=== PATIENT | male | born 1960 | race American Indian/Alaskan Native ===

== ENCOUNTER 2017-11-12 20:32 | Observation (INO) | payer MEDICAID, OTHER ==
--- NOTE | 2017-11-12 23:49 | ED PDOC ---
HPI: Headache Time Seen by Provider: 11/12/17 23:15 Chief Complaint (Nursing): High Blood Pressure Chief Complaint (Provider): headache History Per: Patient History/Exam Limitations: no limitations Onset/Duration Of Symptoms: Days (x3) Current Symptoms Are (Timing): Still Present Additional Complaint(s): 57 year old male with pmHx of HTN, arrives to ED with a complaint of constant, diffuse, pressure-like headache ongoing for 3 days. Patient also reports associated bilateral leg swelling and shortness of breath on exertion. He denies any chest pain, focal weakness, blurry vision, difficulty with gait or speech. Patient admits that he has been non-compliant with HTN meds for over a week and has not seen his PMD in over a year. PMD: Dr. Murray Boss Past Medical History Reviewed: Historical Data, Nursing Documentation, Vital Signs Vital Signs: Last Vital Signs Temp 98.2 F 11/12/17 23:33 Pulse 83 11/12/17 23:33 Resp 18 11/12/17 23:33 BP 187/126 H 11/12/17 23:33 Pulse Ox 99 11/12/17 23:33 - Medical History PMH: Bipolar Disorder, HTN, Malignancy (testicular cancer), Schizophrenia Denies: Chronic Kidney Disease - Surgical History Surgical History: Appendectomy Other surgeries: right orchiectomy - Family History Family History: States: Unknown Family Hx - Social History Current smoker - smoking cessation education provided: Yes Alcohol: Occasional (3 times/weekly) Drugs: Denies - Immunization History Hx Tetanus Toxoid Vaccination: No Hx Influenza Vaccination: Yes Hx Pneumococcal Vaccination: No - Home Medications Home Medications: Ambulatory Orders Medication Instructions Recorded Benztropine [Cogentin] 1 mg PO DAILY 11/13/17 Colchicine [Mitigare] 0.6 mg PO BID 11/13/17 Risperidone [Risperdal] 3 mg PO DAILY 11/13/17 Carvedilol [Coreg] 6.25 mg PO Q12 #30 tab 11/15/17 Furosemide [Lasix] 20 mg PO DAILY #30 tablet 11/15/17 Lisinopril [Zestril] 20 mg PO DAILY #30 tab 11/15/17 Pantoprazole [Protonix EC Tab] 40 mg PO DAILY #30 ect 11/15/17 - Allergies Allergies/Adverse Reactions: Allergies Allergy/AdvReac Type Severity Reaction Status Date / Time shellfish derived Allergy Intermediate Verified 04/24/16 07:25 Review of Systems ROS Statement: Except As Marked, All Systems Reviewed And Found Negative Eyes: Negative for: Vision Change (blurry) Cardiovascular: Negative for: Chest Pain Respiratory: Positive for: SOB with Exertion Musculoskeletal: Positive for: Other (bilateral leg swelling) Neurological: Positive for: Headache (pressure-like, diffuse). Negative for: Weakness (focal), Incoordination (difficulty with gait), Change in Speech Physical Exam - Reviewed Nursing Documentation Reviewed: Yes Vital Signs Reviewed: Yes - Physical Exam Appears: Positive for: Well, No Acute Distress Head Exam: Positive for: ATRAUMATIC, NORMOCEPHALIC Skin: Positive for: Warm, Dry Eye Exam: Positive for: EOMI, PERRL ENT: Negative for: Pharyngeal Erythema, Tonsillar Exudate Neck: Positive for: Painless ROM, Supple Cardiovascular/Chest: Positive for: Regular Rate, Rhythm. Negative for: Murmur Respiratory: Positive for: Decreased Breath Sounds (at bases), Other (clear to auscultation). Negative for: Rales, Rhonchi, Wheezing Gastrointestinal/Abdominal: Positive for: Soft. Negative for: Tenderness Back: Positive for: Normal Inspection. Negative for: Decreased ROM Extremity: Positive for: Pedal Edema (1+ pitting bilaterally ) Lymphatic: Negative for: Adenopathy Neurologic/Psych: Positive for: Alert, Oriented. Negative for: Motor/Sensory Deficits - Laboratory Results Result Diagrams: 11/14/17 04:25 11/15/17 05:05 - ECG O2 Sat by Pulse Oximetry: 99 (RA) Pulse Ox Interpretation: Normal Medical Decision Making Medical Decision Making: Initial Impression: Hypertension Differential includes but not limited to: CHF, renal insufficency, hypertensive encephalopathy, fluid overload Initial Plan: * Type and screen * CT head without contrast * EKG * BNP * CMP * Magnesium * Phospourous * Troponin I * Urine dipstick * CBC * PTT * PT * CXR Scribe Attestation: Documented by Leyla Weston, acting as a scribe for Evette Lee MD. Provider Scribe Attestation: All medical record entries made by the Scribe were at my direction and personally dictated by me. I have reviewed the chart and agree that the record accurately reflects my personal performance of the history, physical exam, medical decision making, and the department course for this patient. I have also personally directed, reviewed, and agree with the discharge instructions and disposition. Disposition - Clinical Impression Clinical Impression: Fluid overload, Hypertension - Disposition Disposition: Transfer of Care Disposition Time: 00:00 Condition: STABLE Patient Signed Over To: Markie Caldera Handoff Comments: pending ED work-up and final disposition
[2017-11-12] MEDS ORDERED: Nitroglycerin 2% Ointment Foilpak UD TOP STA (23:51)
[2017-11-13] MEDS ORDERED: Nitroglycerin 2% Ointment Foilpak UD TOP ONE (00:19)
[2017-11-13 00:23] LABS: BASO % 0.1 % (0.0-2.0); EOS # 0.3 K/uL (0.0-0.7); EOS % 3.1 % (0.0-4.0); HEMOGLOBIN 14.6 g/dL (12.0-18.0); LYMPH # 2.5 K/uL (1.0-4.3); MEAN CELL VOLUME 92.9 fl (80.0-94.0); MEAN CORPUSCULAR HEMOGLOBIN 31.2 pg (27.0-31.0); MEAN CORPUSCULAR HGB CONC 33.6 g/dL (33.0-37.0); MEAN PLATELET VOLUME 10.2 fl (7.2-11.7); MONO # 0.8 K/uL (0.0-0.8); MONO % 8.4 % (0.0-10.0); NEUT # 5.5 K/uL (1.8-7.0); NEUT % 60.4 % (50.0-75.0); NRBC % 0.1 % (0.0-0.0); RBC 4.66 Mil/uL (4.40-5.90); RED CELL DISTRIBUTION WIDTH 14.1 % (11.5-14.5)
[2017-11-13 00:27] LABS: CALCIUM 8.5 mg/dL (8.4-10.2); GFR AFRICAN-AMERICAN > 60; GFR NON-AFRICAN AMERICAN 57
[2017-11-13 00:28] LABS: PROTHROMBIN TIME 11.3 Seconds (9.8-13.1)
[2017-11-13 00:30] LABS: PARTIAL THROMBOPLASTIN TIME 30.9 Seconds (25.6-37.1)
--- NOTE | 2017-11-13 00:32 | ED PDOC ---
- Laboratory Results Result Diagrams: 11/13/17 00:08 11/13/17 00:08 - ECG O2 Sat by Pulse Oximetry: 99 (RA) Medical Decision Making Medical Decision Making: Time: 00:00 --Patient is endorsed to provider by Dr. Lee, pending ED work-up and final disposition. Time: 00:10 --CT head FINDINGS: Brain: No intracranial hemorrhage. No significant white matter disease. No evidence of evolved territorial infarct. No mass effect or midline shift. Ventricles: Unremarkable. No ventriculomegaly. Bones/joints: No acute osseous abnormality. Soft tissues: No soft tissue swelling. Sinuses: Visualized paranasal sinuses are clear. Mastoid air cells: Mastoid air cells are well-aerated. IMPRESSION: No acute findings. 300 Patient has diuresed significantly, approximately 3.5L. [address] Poole who agrees to admission for diuresis and cardiac monitoring. Scribe Attestation: Documented by Leyla Weston, acting as a scribe for Markie Caldera MD. Provider Scribe Attestation: All medical record entries made by the Scribe were at my direction and personally dictated by me. I have reviewed the chart and agree that the record accurately reflects my personal performance of the history, physical exam, medical decision making, and the department course for this patient. I have also personally directed, reviewed, and agree with the discharge instructions and disposition. Disposition - Clinical Impression Clinical Impression: Fluid overload, Hypertension - POA Present On Arrival: None - Disposition Disposition: Hospitalized as Observation Patient Disposition Time: 06:30 Condition: STABLE
[2017-11-13 00:39] LABS: B-TYPE NATRIURETIC PEPTIDE 1440 pg/ml (0-900)
[2017-11-13 00:42] LABS: ALBUMIN 3.6 g/dL (3.5-5.0); ALT/SGPT 46 U/L (21-72); AST/SGOT 47 U/L (17-59); BARBITURATES, UR NEGATIVE (NEGATIVE); BENZODIAZEPINES, UR NEGATIVE (NEGATIVE); BLOOD UREA NITROGEN 21 mg/dl (9-20); OPIATES, UR NEGATIVE (NEGATIVE); PHENCYCLIDINE, UR NEGATIVE (NEGATIVE)
--- NOTE | 2017-11-13 07:13 | CARD ---
APPROVED REPORT Date of service: 11/13/2017 <Conclusion> Normal sinus rhythm Possible Left atrial enlargement ST & T wave abnormality, consider inferolateral ischemia Prolonged QT Abnormal ECG
--- NOTE | 2017-11-13 08:27 | RAD ---
Date of service: 11/12/2017 HISTORY: hypertension edema COMPARISON: 01/17/2015 TECHNIQUE: Chest PA and lateral FINDINGS: LUNGS: No consolidation. Interval increased pulmonary venous congestion PLEURA: No pleural effusion or pneumothorax appreciated CARDIOVASCULAR: Cardiomegaly -similar. Interval increased pulmonary venous congestion OSSEOUS STRUCTURES: Spondylosis VISUALIZED UPPER ABDOMEN: Normal. OTHER FINDINGS: None. IMPRESSION: Cardiomegaly with interval increased pulmonary venous congestion-compatible with interval mild CHF
--- NOTE | 2017-11-13 08:45 | CT ---
Date of service: 11/12/2017 PROCEDURE: CT HEAD WITHOUT CONTRAST. HISTORY: DIZZINESS HEADACHE COMPARISON: 03/07/2015 TECHNIQUE: Axial computed tomography images were obtained through the head/brain without intravenous contrast. Radiation dose: Total exam DLP = 1239 mGy-cm. This CT exam was performed using one or more of the following dose reduction techniques: Automated exposure control, adjustment of the mA and/or kV according to patient size, and/or use of iterative reconstruction technique. FINDINGS: HEMORRHAGE: No intracranial hemorrhage. BRAIN: No mass effect or edema. No atrophy or chronic microvascular ischemic changes. VENTRICLES: Unremarkable. No hydrocephalus. CALVARIUM: Unremarkable. PARANASAL SINUSES: Unremarkable as visualized. No significant inflammatory changes. MASTOID AIR CELLS: Unremarkable as visualized. No inflammatory changes. OTHER FINDINGS: None. IMPRESSION: Normal CT of the Head. No interval pathology noted. Concordant results (preliminary interpretation) provided by [facility].
[2017-11-13] MEDS ORDERED: Magnesium Sulfate 2 gm/50 ml 2 GM/50 ML BAG IVPB ONE (11:20)
[2017-11-13] MEDS ORDERED: Magnesium Sulfate 2 gm/50 ml 2 GM/50 ML BAG ONE (11:30)
[2017-11-13] MEDS ORDERED: Pneumococcal 23-Valent Vaccine IM ONE (15:20)
--- NOTE | 2017-11-13 23:50 | CP.PCM.HP ---
History of Present Illness - History of Present Illness History of Present Illness: CC: MARTINEZ, SOB and Leg Swelling History of Present Illness: A 57 year old male with PMHx of HTN, arrives to ED with a complaint of constant , diffuse, pressure-like headache ongoing for 3 days. Patient also reports associated bilateral leg swelling and shortness of breath on exertion. He denies any chest pain, focal weakness, blurry vision, difficulty with gait or speech. Patient admits that he has been non-compliant with HTN meds for over a week and has not seen his PMD in over a year. Patient's BP was found to be SBP> 200, and admitted for Hypertensive Emergency with Acute Pulmonary Edema due to Most likely New onset CHF. Present on Admission - Present on Admission Any Indicators Present on Admission: Yes History of DVT/PE: No History of Uncontrolled Diabetes: No Urinary Catheter: No Decubitus Ulcer Present: No Review of Systems - Review of Systems All systems: reviewed and no additional remarkable complaints except Review of Systems: as per HPI Past Patient History - Infectious Disease Hx of Infectious Diseases: None - Past Medical History & Family History Past Medical History?: Yes Past Family History: Reviewed and not pertinent - Past Social History Smoking Status: Never Smoked Alcohol: Social Drugs: Cocaine - CARDIAC Hx Cardiac Disorders: Yes Hx Hypertension: Yes - PULMONARY Hx Respiratory Disorders: No - NEUROLOGICAL Hx Neurological Disorder: No - HEENT Hx HEENT Problems: No - RENAL Hx Chronic Kidney Disease: No - ENDOCRINE/METABOLIC Hx Endocrine Disorders: No - HEMATOLOGICAL/ONCOLOGICAL Hx Blood Disorders: Yes Hx AIDS: No Hx Cancer: Yes (testicular cancer) Hx Human Immunodeficiency Virus (HIV): No - INTEGUMENTARY Hx Dermatological Problems: No - MUSCULOSKELETAL/RHEUMATOLOGICAL Hx Musculoskeletal Disorders: Yes Hx Falls: No Hx Gout: Yes - GASTROINTESTINAL Hx Gastrointestinal Disorders: No - GENITOURINARY/GYNECOLOGICAL Hx Genitourinary Disorders: No - PSYCHIATRIC Hx Psychophysiologic Disorder: Yes Hx Anxiety: Yes Hx Bipolar Disorder: Yes Hx Schizophrenia: Yes Hx Substance Use: Yes - SURGICAL HISTORY Hx Surgeries: Yes Hx Appendectomy: Yes - ANESTHESIA Hx Anesthesia: Yes Hx Anesthesia Reactions: No Hx Malignant Hyperthermia: No Has any member of the family had a problem w/ anesthesia?: No Meds Allergies/Adverse Reactions: Allergies Allergy/AdvReac Type Severity Reaction Status Date / Time shellfish derived Allergy Intermediate Verified 04/24/16 07:25 Physical Exam - Constitutional Appears: Well, No Acute Distress - Head Exam Head Exam: ATRAUMATIC, NORMAL INSPECTION, NORMOCEPHALIC - Eye Exam Eye Exam: EOMI, Normal appearance, PERRL Pupil Exam: NORMAL ACCOMODATION, PERRL - ENT Exam ENT Exam: Mucous Membranes Moist, Normal Exam - Neck Exam Neck exam: Positive for: Normal Inspection - Respiratory Exam Respiratory Exam: Clear to Auscultation Bilateral, NORMAL BREATHING PATTERN - Cardiovascular Exam Cardiovascular Exam: REGULAR RHYTHM, +S1, +S2 - GI/Abdominal Exam GI & Abdominal Exam: Normal Bowel Sounds, Soft. absent: Tenderness - Extremities Exam Extremities exam: Positive for: full ROM, normal capillary refill, normal inspection, pedal edema (+++Pitting Edema) - Back Exam Back exam: FULL ROM, NORMAL INSPECTION - Neurological Exam Neurological exam: Alert, CN II-XII Intact, Normal Gait, Oriented x3, Reflexes Normal - Psychiatric Exam Psychiatric exam: Normal Affect, Normal Mood - Skin Skin Exam: Dry, Intact, Normal Color, Warm Results - Vital Signs Recent Vital Signs: Last Vital Signs Temp 98.1 F 11/13/17 20:26 Pulse 61 11/13/17 20:26 Resp 20 11/13/17 20:26 BP 174/84 H 11/13/17 20:26 Pulse Ox 97 11/13/17 20:26 - Labs Result Diagrams: 11/13/17 00:08 11/13/17 00:08 Labs: Laboratory Results - last 24 hr 11/13/17 11/13/17 11/13/17 00:08 00:08 00:08 WBC 9.0 RBC 4.66 Hgb 14.6 Hct 43.3 MCV 92.9 MCH 31.2 H MCHC 33.6 RDW 14.1 Plt Count 216 MPV 10.2 Neut % (Auto) 60.4 Lymph % (Auto) 28.0 Anderson % (Auto) 8.4 Eos % (Auto) 3.1 Baso % (Auto) 0.1 Neut # (Auto) 5.5 Lymph # (Auto) 2.5 Anderson # (Auto) 0.8 Eos # (Auto) 0.3 Baso # (Auto) 0.0 PT INR APTT Sodium 139 Potassium 5.0 Chloride 109 H Carbon Dioxide 25 Anion Gap 10 BUN 21 H Creatinine 1.3 Est GFR ( Amer) > 60 Est GFR (Non-Af Amer) 57 Random Glucose 83 Calcium 8.5 Phosphorus 3.4 Magnesium 1.3 L Total Bilirubin 1.1 AST 47 ALT 46 Alkaline Phosphatase 72 Troponin I 0.0360 NT-Pro-B Natriuret Pep 1440 H Total Protein 7.2 Albumin 3.6 Globulin 3.6 Albumin/Globulin Ratio 1.0 Urine Opiates Screen Negative Urine Methadone Screen Negative Ur Barbiturates Screen Negative Ur Phencyclidine Scrn Negative Ur Amphetamines Screen Negative U Benzodiazepines Scrn Negative U Oth Cocaine Metabols Positive H U Cannabinoids Screen Negative Blood Type Blood Type Confirm Antibody Screen BBK History Checked 11/13/17 11/13/17 11/13/17 00:08 00:08 00:30 WBC RBC Hgb Hct MCV MCH MCHC RDW Plt Count MPV Neut % (Auto) Lymph % (Auto) Anderson % (Auto) Eos % (Auto) Baso % (Auto) Neut # (Auto) Lymph # (Auto) Anderson # (Auto) Eos # (Auto) Baso # (Auto) PT 11.3 INR 1.0 APTT 30.9 Sodium Potassium Chloride Carbon Dioxide Anion Gap BUN Creatinine Est GFR ( Amer) Est GFR (Non-Af Amer) Random Glucose Calcium Phosphorus Magnesium Total Bilirubin AST ALT Alkaline Phosphatase Troponin I NT-Pro-B Natriuret Pep Total Protein Albumin Globulin Albumin/Globulin Ratio Urine Opiates Screen Urine Methadone Screen Ur Barbiturates Screen Ur Phencyclidine Scrn Ur Amphetamines Screen U Benzodiazepines Scrn U Oth Cocaine Metabols U Cannabinoids Screen Blood Type A POSITIVE Blood Type Confirm A POSITIVE Antibody Screen Negative BBK History Checked No verified bt 11/13/17 12:55 WBC RBC Hgb Hct MCV MCH MCHC RDW Plt Count MPV Neut % (Auto) Lymph % (Auto) Anderson % (Auto) Eos % (Auto) Baso % (Auto) Neut # (Auto) Lymph # (Auto) Anderson # (Auto) Eos # (Auto) Baso # (Auto) PT INR APTT Sodium Potassium Chloride Carbon Dioxide Anion Gap BUN Creatinine Est GFR ( Amer) Est GFR (Non-Af Amer) Random Glucose Calcium Phosphorus Magnesium Total Bilirubin AST ALT Alkaline Phosphatase Troponin I 0.0250 NT-Pro-B Natriuret Pep Total Protein Albumin Globulin Albumin/Globulin Ratio Urine Opiates Screen Urine Methadone Screen Ur Barbiturates Screen Ur Phencyclidine Scrn Ur Amphetamines Screen U Benzodiazepines Scrn U Oth Cocaine Metabols U Cannabinoids Screen Blood Type Blood Type Confirm Antibody Screen BBK History Checked - EKG Data EKG Interpreted by: Myself EKG shows normal: Sinus rhythm Rate: Normal - EKG Data EKG comments: ST&T Changes. Prolonged QT - Imaging and Cardiology Chest x-ray Status: Report reviewed by me Additional comment: IMPRESSION: Cardiomegaly with interval increased pulmonary venous congestion-compatible with interval mild CHF Assessment & Plan (1) Hypertensive emergency Assessment and Plan: Cocaine Use O2 Via NC Clonidine 0.2mg BID Lasix 40mg BID Serial Trop and EKG TTE Status: Acute Priority: High (2) Counseling on substance use and abuse Assessment and Plan: Cocaine Metabolites Status: Acute
[2017-11-14 06:13] LABS: BASO # 0.1 K/uL (0.0-0.2); BASO % 0.6 % (0.0-2.0); EOS # 0.3 K/uL (0.0-0.7); EOS % 3.7 % (0.0-4.0); HEMOGLOBIN 15.4 g/dL (12.0-18.0); LYMPH # 2.4 K/uL (1.0-4.3); LYMPH % 26.6 % (20.0-40.0); MEAN CELL VOLUME 91.4 fl (80.0-94.0); MEAN CORPUSCULAR HEMOGLOBIN 31.5 pg (27.0-31.0); MEAN CORPUSCULAR HGB CONC 34.4 g/dL (33.0-37.0); MEAN PLATELET VOLUME 9.7 fl (7.2-11.7); MONO # 0.8 K/uL (0.0-0.8); NEUT # 5.4 K/uL (1.8-7.0); NEUT % 60.1 % (50.0-75.0); NRBC % 0.3 % (0.0-0.0); RBC 4.91 Mil/uL (4.40-5.90); RED CELL DISTRIBUTION WIDTH 13.7 % (11.5-14.5); WHITE BLOOD COUNT 9.1 K/uL (4.8-10.8)
[2017-11-14 06:27] LABS: TROPONIN I 0.025 ng/mL (0.00-0.120)
[2017-11-14 06:51] LABS: ALB/GLOB RATIO 1.1 (1.0-2.1); ALBUMIN 3.5 g/dL (3.5-5.0); CALCIUM 9.3 mg/dL (8.4-10.2)
[2017-11-14] MEDS: Pantoprazole 40 mg EC Tab PO SCH (08:07)
[2017-11-14] MEDS ORDERED: Magnesium Sulfate 2 gm/50 ml 2 GM/50 ML BAG IVPB ONE (09:00)
[2017-11-14 09:42] LABS: HDL CHOLESTEROL 29 MG/DL (30-70)
[2017-11-14 09:52] LABS: LDL CHOLESTEROL 111 mg/dL (0-129)
--- NOTE | 2017-11-14 14:31 | CARD ---
APPROVED REPORT Date of service: 11/14/2017 EXAM: Two-dimensional and M-mode echocardiogram with Doppler and color Doppler. Other Information Quality : GoodRhythm : NSR INDICATION Congestive Heart Failure 2D DIMENSIONS IVSd2.19 (0.7-1.1cm)LVDd4.85 (3.9-5.9cm) LVOT Diameter2.29 (1.8-2.4cm)PWd1.62 (0.7-1.1cm) IVSs2.51 (0.8-1.2cm)LVDs3.31 (2.5-4.0cm) FS (%) 31.7 %PWs2.28 (0.8-1.2cm) M-Mode DIMENSIONS Left Atrium (MM)3.88 (2.5-4.0cm)IVSd1.80 (0.7-1.1cm) Aortic Root3.47 (2.2-3.7cm)LVDd5.10 (4.0-5.6cm) Aortic Cusp Exc.2.15 (1.5-2.0cm)PWd1.82 (0.7-1.1cm) IVSs2.38 cmFS (%) 38 % LVDs3.09 (2.0-3.8cm)PWs2.44 cm Aortic Valve AoV Peak Tfidcbyp189.5cm/sAoV VTI21.5cmAO Peak GR.5mmHg LVOT Peak Itjronyu01.6cm/sLVOT VTI14.57cmAO Mean GR.4mmHg MARY JO (VMAX)1.77pt9ZRS (VTI)1.29cm2 Mitral Valve MV E Lvqswqvi93.8cm/sMV DECEL MWQO292hkXS A Hyagqsvt45.3cm/s MV MCH76efA/A ratio1.5MVA (PHT)3.42cm2 TDI Lateral E' Peak V3.10cm/sMedial E' Peak V4.24cm/sE/Lateral E'20.6 E/Medial E'15.0 Pulmonary Valve PV Peak Nlzjdvdm76.6cm/s LEFT VENTRICLE The left ventricle is normal size. There is moderate concentric left ventricular hypertrophy. The left ventricular ejection fraction is within the normal range. The Ejection Fraction is 65%. No regional wall motion abnormalities noted.. Transmitral Doppler flow pattern is Grade II-pseudonormal filling dynamics. No left ventricle thrombus noted on this study. There is no ventricular septal defect visualized. There is no mass noted in the left ventricle. RIGHT VENTRICLE The right ventricle is normal size. There is normal right ventricular wall thickness. The right ventricular systolic function is normal. ATRIA The left atrium size is normal. The right atrium size is normal. The interatrial septum is intact with no evidence for an atrial septal defect. AORTIC VALVE The aortic valve is normal in structure. No aortic regurgitation is present. There is no aortic valvular stenosis. MITRAL VALVE The mitral valve is normal in structure. There is no mitral valve stenosis. There is trivial to mild mitral valve regurgitation noted. TRICUSPID VALVE The tricuspid valve is normal in structure. There is no tricuspid valve regurgitation noted. PULMONIC VALVE The pulmonary valve is normal in structure. There is no pulmonic valvular regurgitation. GREAT VESSELS The aortic root is normal in size. The ascending aorta is normal in size. The pulmonary artery is normal. The IVC is normal in size and collapses >50% with inspiration. PERICARDIAL EFFUSION There is no pericardial effusion. <Conclusion> Trivial to mild mitral insufficiency Moderate LVH Normal LV systolic function with doppler hemodynamics consistent with abnormal relaxation Estimated EF 65%
[2017-11-15 06:06] LABS: ALB/GLOB RATIO 1.1 (1.0-2.1); CALCIUM 9.6 mg/dL (8.4-10.2)
--- NOTE | 2017-11-15 08:06 | CP.PCM.PN ---
Subjective - Date & Time of Evaluation Date of Evaluation: 11/14/17 Time of Evaluation: 20:20 - Subjective Subjective: No chest pain. TTE shows Diastolic CHF, and Counselled about quitting drug use. Agreed to be on BB for Hypertensive Cardiomyopathy as the patient stated that he will never use Cocaine. Will start Coreg and BRYSON inhibitor. Objective - Vital Signs/Intake and Output Vital Signs (last 24 hours): Temp Pulse Resp BP Pulse Ox 97.5 F L 82 18 145/93 H 100 11/15/17 04:43 11/15/17 04:43 11/15/17 04:43 11/15/17 04:43 11/15/17 04:43 - Medications Medications: Current Medications Carvedilol (Coreg) 6.25 mg PO Q12 [facility] Last Admin: 11/14/17 21:42 Dose: Not Given Furosemide (Lasix) 40 mg IVP BID [facility] Last Admin: 11/14/17 16:13 Dose: 40 mg Lisinopril (Zestril) 20 mg PO DAILY [facility] Last Admin: 11/14/17 18:30 Dose: 20 mg Pantoprazole Sodium (Protonix Ec Tab) 40 mg PO DAILY [facility] Last Admin: 11/14/17 08:07 Dose: 40 mg - Labs Labs: 11/14/17 04:25 11/15/17 05:05 PT 11.3 Seconds (9.8-13.1) 11/13/17 00:08 INR 1.0 11/13/17 00:08 APTT 30.9 Seconds (25.6-37.1) 11/13/17 00:08 - Constitutional Appears: Well, No Acute Distress - Head Exam Head Exam: ATRAUMATIC, NORMAL INSPECTION, NORMOCEPHALIC - Eye Exam Eye Exam: EOMI, Normal appearance, PERRL Pupil Exam: NORMAL ACCOMODATION, PERRL - ENT Exam ENT Exam: Mucous Membranes Moist, Normal Exam - Neck Exam Neck Exam: Full ROM, Normal Inspection. absent: Lymphadenopathy - Respiratory Exam Respiratory Exam: Clear to Ausculation Bilateral, NORMAL BREATHING PATTERN - Cardiovascular Exam Cardiovascular Exam: REGULAR RHYTHM, +S1, +S2. absent: Murmur - GI/Abdominal Exam GI & Abdominal Exam: Soft, Normal Bowel Sounds. absent: Tenderness - Extremities Exam Extremities Exam: Full ROM, Pedal Edema (Pitting Edema). absent: Joint Swelling - Back Exam Back Exam: NORMAL INSPECTION - Neurological Exam Neurological Exam: Alert, Awake, CN II-XII Intact, Normal Gait, Oriented x3 - Psychiatric Exam Psychiatric exam: Normal Affect, Normal Mood - Skin Skin Exam: Dry, Intact, Normal Color, Warm Assessment and Plan (1) Hypertensive emergency Assessment & Plan: Cocaine Use Daistolic CHF O2 Via NC D/c Clonidine 0.2mg BID Add BB and BRYSON Inhibitor Lasix 40mg BID Serial Trop and EKG TTE CArdiology Consult Status: Acute Priority: High (2) Counseling on substance use and abuse Assessment and Plan: Cocaine Metabolites Status: Acute
[2017-11-15 08:29] VITALS: RESP 20; TEMP 98
[2017-11-15] MEDS: Pantoprazole 40 mg EC Tab PO SCH (08:34)
--- NOTE | 2017-11-15 09:33 | CP.PCM.CON ---
History of Present Illness - History of Present Illness History of Present Illness: Consultation for evaluation of CHF HPI: Hubert is a pleasant 57-year-old male with history of bipolar disorder on Cogentin and Risperdal active cocaine user who presented with complains of headaches pounding in nature accompanied with shortness of breath after active cocaine use few days prior to presentation on initial presentation he was noted to be in hypertensive emergency with pulmonary edema attributable to possible underlying diastolic CHF initial BNP was in 1400 range troponin 3 essentially unremarkable EKG showed normal sinus rhythm left ventricular hypertrophy with ST depressions in the inferior lateral leads questionable for underlying ischemia. Clinically he has been diagnosed with bipolar since 2011 and is on disability since then denies having any active chest pains but does get bouts of dyspnea on exertion activity somewhat limited takes hydrochlorothiazide for his blood pressure. Echocardiogram done on this admission was reviewed which showed normal ejection fraction with mild/moderate LVH grade 1 diastolic dysfunction and mild tricuspid regurgitation. Review of Systems - Review of Systems Systems not reviewed;Unavailable: Acuity of Condition - Constitutional Constitutional: As Per HPI - EENT Eyes: As Per HPI Ears: As Per HPI Nose/Mouth/Throat: As Per HPI - Cardiovascular Cardiovascular: As Per HPI - Respiratory Respiratory: As Per HPI - Gastrointestinal Gastrointestinal: As Per HPI - Genitourinary Genitourinary: As Per HPI - Reproductive: Male Reproductive:Male: As Per HPI - Musculoskeletal Musculoskeletal: As Per HPI - Integumentary Integumentary: As Per HPI - Neurological Neurological: As Per HPI - Psychiatric Psychiatric: As Per HPI - Endocrine Endocrine: As Per HPI - Hematologic/Lymphatic Hematologic: As Per HPI Past Patient History - Infectious Disease Hx of Infectious Diseases: None - Past Medical History & Family History Past Medical History?: Yes Past Family History: Reviewed and not pertinent - Past Social History Smoking Status: Never Smoked Alcohol: Social Drugs: Cocaine - CARDIAC Hx Cardiac Disorders: Yes Hx Hypertension: Yes - PULMONARY Hx Respiratory Disorders: No - NEUROLOGICAL Hx Neurological Disorder: No - HEENT Hx HEENT Problems: No - RENAL Hx Chronic Kidney Disease: No - ENDOCRINE/METABOLIC Hx Endocrine Disorders: No - HEMATOLOGICAL/ONCOLOGICAL Hx Blood Disorders: Yes Hx AIDS: No Hx Cancer: Yes (testicular cancer) Hx Human Immunodeficiency Virus (HIV): No - INTEGUMENTARY Hx Dermatological Problems: No - MUSCULOSKELETAL/RHEUMATOLOGICAL Hx Musculoskeletal Disorders: Yes Hx Falls: No Hx Gout: Yes - GASTROINTESTINAL Hx Gastrointestinal Disorders: No - GENITOURINARY/GYNECOLOGICAL Hx Genitourinary Disorders: No - PSYCHIATRIC Hx Psychophysiologic Disorder: Yes Hx Anxiety: Yes Hx Bipolar Disorder: Yes Hx Schizophrenia: Yes Hx Substance Use: Yes - SURGICAL HISTORY Hx Surgeries: Yes Hx Appendectomy: Yes - ANESTHESIA Hx Anesthesia: Yes Hx Anesthesia Reactions: No Hx Malignant Hyperthermia: No Has any member of the family had a problem w/ anesthesia?: No Meds Allergies/Adverse Reactions: Allergies Allergy/AdvReac Type Severity Reaction Status Date / Time shellfish derived Allergy Intermediate Verified 04/24/16 07:25 - Medications Medications: Current Medications Carvedilol (Coreg) 6.25 mg PO Q12 [facility] Last Admin: 11/15/17 08:33 Dose: 6.25 mg Furosemide (Lasix) 40 mg IVP BID [facility] Last Admin: 11/15/17 08:34 Dose: 40 mg Lisinopril (Zestril) 20 mg PO DAILY [facility] Last Admin: 11/15/17 08:34 Dose: 20 mg Pantoprazole Sodium (Protonix Ec Tab) 40 mg PO DAILY [facility] Last Admin: 11/15/17 08:34 Dose: 40 mg Physical Exam - Constitutional Appears: Well - Head Exam Head Exam: ATRAUMATIC, NORMAL INSPECTION, NORMOCEPHALIC - Eye Exam Eye Exam: EOMI, Normal appearance, PERRL Pupil Exam: NORMAL ACCOMODATION, PERRL - ENT Exam ENT Exam: Mucous Membranes Moist, Normal Exam - Neck Exam Neck exam: Positive for: Normal Inspection - Respiratory Exam Respiratory Exam: Clear to Auscultation Bilateral, NORMAL BREATHING PATTERN - Cardiovascular Exam Cardiovascular Exam: REGULAR RHYTHM, RRR, +S1, +S2, Systolic Murmur - GI/Abdominal Exam GI & Abdominal Exam: Normal Bowel Sounds, Soft. absent: Tenderness - Extremities Exam Extremities exam: Positive for: normal inspection - Back Exam Back exam: NORMAL INSPECTION - Neurological Exam Neurological exam: Alert, CN II-XII Intact, Normal Gait, Oriented x3, Reflexes Normal - Psychiatric Exam Psychiatric exam: Normal Affect, Normal Mood - Skin Skin Exam: Dry, Intact, Normal Color, Warm Results - Vital Signs Recent Vital Signs: Last Vital Signs Temp 98 F 11/15/17 08:00 Pulse 68 11/15/17 08:35 Resp 20 11/15/17 08:00 BP 146/90 11/15/17 08:34 Pulse Ox 95 11/15/17 08:00 - Labs Result Diagrams: 11/14/17 04:25 11/15/17 05:05 Labs: Laboratory Results - last 24 hr 11/14/17 11/14/17 11/14/17 04:00 12:00 22:30 Sodium Potassium Chloride Carbon Dioxide Anion Gap BUN Creatinine Est GFR ( Amer) Est GFR (Non-Af Amer) POC Glucose (mg/dL) 100 Random Glucose Calcium Total Bilirubin AST ALT Alkaline Phosphatase Troponin I 0.0240 Total Protein Albumin Globulin Albumin/Globulin Ratio Triglycerides 145 Cholesterol 187 LDL Cholesterol Direct 111 HDL Cholesterol 29 L 11/15/17 05:05 Sodium 140 Potassium 3.7 Chloride 98 Carbon Dioxide 31 H Anion Gap 15 BUN 30 H Creatinine 1.6 H Est GFR ( Amer) 55 Est GFR (Non-Af Amer) 45 POC Glucose (mg/dL) Random Glucose 89 Calcium 9.6 Total Bilirubin 0.6 AST 27 ALT 49 Alkaline Phosphatase 86 Troponin I Total Protein 7.6 Albumin 4.0 Globulin 3.6 Albumin/Globulin Ratio 1.1 Triglycerides Cholesterol LDL Cholesterol Direct HDL Cholesterol Assessment & Plan (1) Acute on chronic diastolic (congestive) heart failure Assessment and Plan: Acute on chronic diastolic CHF secondary to hypertensive urgency from active cocaine use blood pressure well controlled on carvedilol and lisinopril he got diuretic which improved his fluid edema and congestion. And would recommend to continue him on carvedilol and lisinopril. Also add low-dose diuretic Lasix 20 mg p.o. daily. Status: Acute (2) Fluid overload Assessment and Plan: improved lasix 20mg po daily Status: Acute (3) Hypertensive emergency Status: Acute Priority: High (4) Dyspnea on exertion Status: Acute (5) Abnormal EKG Assessment and Plan: outpt ischemic evaluation of patient shows compliance with therapy Status: Acute
--- NOTE | 2017-11-15 09:57 | IP.NPCORE ---
Heart Failure Core Measure - Heart Failure Ejection Fraction: 40 % or Greater BRYSON Inhibitor Prescribed: Yes Beta-Anderson Prescribed: Carvedilol - Follow up Will be discharged to: Home Follow Up Date (must be within 7 days from discharge): 11/22/17 (with dr campbell ) Follow Up Time: 09:00
[2017-11-15 12:33] VITALS: BP 109/64; PULSE 58
[2017-11-16 00:19] VITALS: O2SAT 99
--- NOTE | 2017-11-17 04:14 | CP.PCM.DIS ---
Provider - Provider Date of Admission: 11/13/17 01:08 Attending physician: Analilia Poole MD Time Spent in preparation of Discharge (in minutes): 25 Diagnosis - Discharge Diagnosis (1) Hypertensive emergency Status: Acute Priority: High (2) Acute diastolic (congestive) heart failure Status: Acute (3) Acute on chronic diastolic (congestive) heart failure Status: Acute Priority: High (4) Counseling on substance use and abuse Status: Acute Hospital Course - Lab Results Lab Results: Most Recent Lab Values WBC 9.1 K/uL (4.8-10.8) 11/14/17 04:25 RBC 4.91 Mil/uL (4.40-5.90) 11/14/17 04:25 Hgb 15.4 g/dL (12.0-18.0) 11/14/17 04:25 Hct 44.9 % (35.0-51.0) 11/14/17 04:25 MCV 91.4 fl (80.0-94.0) 11/14/17 04:25 MCH 31.5 pg (27.0-31.0) H 11/14/17 04:25 MCHC 34.4 g/dL (33.0-37.0) 11/14/17 04:25 RDW 13.7 % (11.5-14.5) 11/14/17 04:25 Plt Count 221 K/uL (130-400) 11/14/17 04:25 MPV 9.7 fl (7.2-11.7) 11/14/17 04:25 Neut % (Auto) 60.1 % (50.0-75.0) 11/14/17 04:25 Lymph % (Auto) 26.6 % (20.0-40.0) 11/14/17 04:25 [place] % (Auto) 9.0 % (0.0-10.0) 11/14/17 04:25 Eos % (Auto) 3.7 % (0.0-4.0) 11/14/17 04:25 Baso % (Auto) 0.6 % (0.0-2.0) 11/14/17 04:25 Neut # (Auto) 5.4 K/uL (1.8-7.0) 11/14/17 04:25 Lymph # (Auto) 2.4 K/uL (1.0-4.3) 11/14/17 04:25 [place] # (Auto) 0.8 K/uL (0.0-0.8) 11/14/17 04:25 Eos # (Auto) 0.3 K/uL (0.0-0.7) 11/14/17 04:25 Baso # (Auto) 0.1 K/uL (0.0-0.2) 11/14/17 04:25 PT 11.3 Seconds (9.8-13.1) 11/13/17 00:08 INR 1.0 11/13/17 00:08 APTT 30.9 Seconds (25.6-37.1) 11/13/17 00:08 Sodium 140 mmol/l (132-148) 11/15/17 05:05 Potassium 3.7 MMOL/L (3.6-5.0) 11/15/17 05:05 Chloride 98 mmol/L (98-107) 11/15/17 05:05 Carbon Dioxide 31 mmol/L (22-30) H 11/15/17 05:05 Anion Gap 15 (10-20) 11/15/17 05:05 BUN 30 mg/dl (9-20) H 11/15/17 05:05 Creatinine 1.6 mg/dl (0.8-1.5) H 11/15/17 05:05 Est GFR ( Amer) 55 11/15/17 05:05 Est GFR (Non-Af Amer) 45 11/15/17 05:05 POC Glucose (mg/dL) 100 mg/dL (65-110) 11/14/17 22:30 Random Glucose 89 mg/dL (75-110) 11/15/17 05:05 Calcium 9.6 mg/dL (8.4-10.2) 11/15/17 05:05 Phosphorus 3.1 mg/dl (2.5-4.5) 11/14/17 04:25 Magnesium 1.4 MG/DL (1.6-2.3) L 11/14/17 04:25 Total Bilirubin 0.6 mg/dl (0.2-1.3) 11/15/17 05:05 AST 27 U/L (17-59) 11/15/17 05:05 ALT 49 U/L (21-72) 11/15/17 05:05 Alkaline Phosphatase 86 U/L (38-126) 11/15/17 05:05 Troponin I 0.0240 ng/mL (0.00-0.120) 11/14/17 12:00 NT-Pro-B Natriuret Pep 1440 pg/ml (0-900) H 11/13/17 00:08 Total Protein 7.6 G/DL (6.3-8.2) 11/15/17 05:05 Albumin 4.0 g/dL (3.5-5.0) 11/15/17 05:05 Globulin 3.6 gm/dL (2.2-3.9) 11/15/17 05:05 Albumin/Globulin Ratio 1.1 (1.0-2.1) 11/15/17 05:05 Triglycerides 145 mg/DL (0-149) 11/14/17 04:00 Cholesterol 187 mg/dL (0-199) 11/14/17 04:00 LDL Cholesterol Direct 111 mg/dL (0-129) 11/14/17 04:00 HDL Cholesterol 29 MG/DL (30-70) L 11/14/17 04:00 TSH 3rd Generation 1.34 mIU/ML (0.46-4.68) 11/14/17 04:25 Urine Opiates Screen Negative (NEGATIVE) 11/13/17 00:08 Urine Methadone Screen Negative (NEGATIVE) 11/13/17 00:08 Ur Barbiturates Screen Negative (NEGATIVE) 11/13/17 00:08 Ur Phencyclidine Scrn Negative (NEGATIVE) 11/13/17 00:08 Ur Amphetamines Screen Negative (NEGATIVE) 11/13/17 00:08 U Benzodiazepines Scrn Negative (NEGATIVE) 11/13/17 00:08 U Oth Cocaine Metabols Positive (NEGATIVE) H 11/13/17 00:08 U Cannabinoids Screen Negative (NEGATIVE) 11/13/17 00:08 Blood Type A POSITIVE 11/13/17 00:08 Blood Type Confirm A POSITIVE 11/13/17 00:30 Antibody Screen Negative 11/13/17 00:08 BBK History Checked No verified bt 11/13/17 00:08 Discharge Exam - Head Exam Head Exam: ATRAUMATIC, NORMOCEPHALIC - Eye Exam Eye Exam: EOMI, Normal appearance, PERRL Pupil Exam: NORMAL ACCOMODATION, PERRL - Cardiovascular Exam Cardiovascular Exam: REGULAR RHYTHM, +S1, +S2 - GI/Abdominal Exam GI & Abdominal Exam: Normal Bowel Sounds - Extremities Exam Extremities exam: full ROM, normal capillary refill - Back Exam Back exam: FULL ROM. absent: CVA tenderness (L), CVA tenderness (R) - Neurological Exam Neurological exam: Alert, CN II-XII Intact, Normal Gait, Oriented x3, Reflexes Normal - Psychiatric Exam Psychiatric exam: Normal Affect, Normal Mood - Skin Skin Exam: Dry, Intact, Normal Color, Warm Discharge Plan - Discharge Medications Prescriptions: Carvedilol [Coreg] 6.25 mg PO Q12 #30 tab Furosemide [Lasix] 20 mg PO DAILY #30 tablet Pantoprazole [Protonix EC Tab] 40 mg PO DAILY #30 ect Lisinopril [Zestril] 20 mg PO DAILY #30 tab - Follow Up Plan Condition: STABLE Disposition: HOME/ ROUTINE Instructions: Heart Failure, Adult (DC) Additional Instructions: follow up appt.with saturday11/22/17 3:00pm Referrals: Gui Reynoso MD [Medical Doctor] - Murray Boss MD [Family Provider] - Benjamin Cintron MD [Staff Provider] -
== END 2017-11-15 12:39 | disposition home or self-care (01) ==
LOC: H.ER 20:32 → H.ERHOLD 11-13 01:08 → H.TEL 11-13 13:02
PROVIDERS: ADMIT Internal Medicine; ATTEND Internal Medicine
DX: I11.0 Hypertensive heart disease with heart failure (principal); I50.33 Acute on chronic diastolic (congestive) heart failure; I16.1 Hypertensive emergency; I43 Cardiomyopathy in diseases classified elsewhere; I07.1 Rheumatic tricuspid insufficiency; F14.90 Cocaine use, unspecified, uncomplicated; R94.31 Abnormal electrocardiogram [ECG] [EKG]; F31.9 Bipolar disorder, unspecified; F41.9 Anxiety disorder, unspecified; F20.9 Schizophrenia, unspecified; F17.200 Nicotine dependence, unspecified, uncomplicated; Z91.19 Patient's noncompliance with other medical treatment and regimen; Z85.47 Personal history of malignant neoplasm of testis; Z23 Encounter for immunization; Z79.899 Other long term (current) drug therapy; Z90.49 Acquired absence of other specified parts of digestive tract
CPT/HCPCS: 36415; 70450; 71046; 80053; 80061; 80324; 80345; 80346; 80349; 80353; 80358; 80361; 82948; 83735; 83880; 83992; 84100; 84443; 84484; 85025; 85610; 85730; 86850; 86900; 90471; 90732; 93005; 93306; 96374; 99285; G0378; J1940

== ENCOUNTER 2018-02-21 02:44 | Emergency (ER) | payer MEDICAID, OTHER ==
[2018-02-21 03:07] VITALS: O2SAT 97
--- NOTE | 2018-02-21 03:37 | ED PDOC ---
HPI: Back Time Seen by Provider: 02/21/18 03:00 Chief Complaint (Nursing): Male Genitourinary History Per: Patient History/Exam Limitations: no limitations Onset/Duration Of Symptoms: Days (x14) Quality Of Discomfort: Sharp Additional Complaint(s): 57 years old male with history of chronic kidney disease, anxiety and hypertension presents to ER for evaluation of sharp back pain for 2 weeks. P sandra reports pain happens when he goes to sleep and it wakes him up. He denies any dysuria, fever, vomiting or diarrhea. No saddle anasthesia, no weakness or numbness or bowel or bladder incontinence. PMD: non provided Past Medical History Reviewed: Historical Data, Nursing Documentation, Vital Signs Vital Signs: Last Vital Signs Temp 98.3 F 02/21/18 03:03 Pulse 81 02/21/18 03:03 Resp 16 02/21/18 03:03 BP 196/132 H 02/21/18 03:03 Pulse Ox 97 02/21/18 03:03 - Medical History PMH: Anxiety, Bipolar Disorder, HTN, Malignancy (testicular cancer), Schizophrenia Denies: HIV, Chronic Kidney Disease Other PMH: Chronic kidney disease - Surgical History Surgical History: Appendectomy - Family History Family History: States: Unknown Family Hx - Social History Current smoker - smoking cessation education provided: No Alcohol: None Drugs: Denies - Immunization History Hx Tetanus Toxoid Vaccination: No Hx Influenza Vaccination: Yes Hx Pneumococcal Vaccination: No - Home Medications Home Medications: Ambulatory Orders Medication Instructions Recorded RX: Benztropine [Cogentin] 1 mg PO DAILY 11/13/17 RX: Colchicine [Mitigare] 0.6 mg PO BID 11/13/17 RX: Risperidone [Risperdal] 3 mg PO DAILY 11/13/17 Furosemide [Lasix] 20 mg PO DAILY #30 tablet 11/15/17 RX: Carvedilol [Coreg] 6.25 mg PO Q12 #30 tab 11/15/17 RX: Lisinopril [Zestril] 20 mg PO DAILY #30 tab 11/15/17 RX: Pantoprazole [Protonix EC Tab] 40 mg PO DAILY #30 ect 11/15/17 - Allergies Allergies/Adverse Reactions: Allergies Allergy/AdvReac Type Severity Reaction Status Date / Time shellfish derived AdvReac Intermediate NAUSEA Verified 02/22/18 16:33 Review of Systems ROS Statement: Except As Marked, All Systems Reviewed And Found Negative Constitutional: Negative for: Fever Gastrointestinal: Negative for: Vomiting, Diarrhea Genitourinary Male: Negative for: Dysuria Musculoskeletal: Positive for: Back Pain (mid) Physical Exam - Reviewed Nursing Documentation Reviewed: Yes Vital Signs Reviewed: Yes - Physical Exam Appears: Positive for: Non-toxic, No Acute Distress Head Exam: Positive for: ATRAUMATIC, NORMOCEPHALIC Skin: Positive for: Normal Color, Warm, Dry Eye Exam: Positive for: Normal appearance ENT: Positive for: Normal ENT Inspection Neck: Positive for: Normal Cardiovascular/Chest: Positive for: Regular Rate, Rhythm. Negative for: Murmur Respiratory: Positive for: Normal Breath Sounds. Negative for: Wheezing Gastrointestinal/Abdominal: Positive for: Normal Exam Back: Positive for: Normal Inspection. Negative for: L CVA Tenderness, R CVA Tenderness Extremity: Positive for: Normal ROM. 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 Negative for: Motor/Sensory Deficits, Aphasia, Facial Droop - ECG O2 Sat by Pulse Oximetry: 97 (RA) Pulse Ox Interpretation: Normal Medical Decision Making Medical Decision Making: Time: 331 Initial Plan: back pain --Acetaminophen 659 mg PO --Urine culture --Urinalysis 0506 Urine shows no infection, pt feels better in no distress. ambulating w steady gait. stable for dc. ----- Scribe Attestation: Documented by Pilar Villalpando, acting as a scribe for Freddie Plummer MD. Provider Scribe Attestation: All medical record entries made by the Scribe were at my direction and personally dictated by me. I have reviewed the chart and agree that the record accurately reflects my personal performance of the history, physical exam, medical decision making, and the department course for this patient. I have also personally directed, reviewed, and agree with the discharge instructions and disposition. Disposition - Clinical Impression Clinical Impression: Back pain - Patient ED Disposition Is Patient to be Admitted: No Counseled Patient/Family Regarding: Studies Performed, Diagnosis, Need For Followup - Disposition Disposition: Routine/Home Disposition Time: 05:20 Condition: IMPROVED Additional Instructions: follow up with your primary doctor in 1-2 days return to the ED with any worsening or concerning symptoms Instructions: Low Back Pain (DC) Forms: [employer] (Rwandan)
[2018-02-21 04:55] LABS: URINE BILIRUBIN NEGATIVE (NEGATIVE); URINE BLOOD NEGATIVE (NEGATIVE); URINE CLARITY CLEAR (Clear); URINE COLOR YELLOW (YELLOW); URINE GLUCOSE (UA) NEG (Normal); URINE LEUKOCYTE ESTERASE NEG Leu/uL (Negative); URINE PROTEIN 30 mg/dL (NEGATIVE); URINE UROBILINOGEN 0.2-1.0 mg/dL (0.2-1.0)
[2018-02-21 07:01] VITALS: BP 151/89; PULSE 84; RESP 17; TEMP 98.5
== END 2018-02-21 05:11 | disposition home or self-care (01) ==
LOC: H.ER 02:44
DX: M54.9 Dorsalgia, unspecified (principal); Z86.59 Personal history of other mental and behavioral disorders; I12.9 Hypertensive chronic kidney disease with stage 1 through stage 4 chronic kidney disease, or unspecified chronic kidney disease; N18.9 Chronic kidney disease, unspecified

== ENCOUNTER 2018-02-22 16:29 | Emergency (ER) | payer OTHER ==
--- NOTE | 2018-02-22 17:37 | ED PDOC ---
HPI: Hypertension/Hypotension Time Seen by Provider: 02/22/18 16:43 Chief Complaint (Nursing): High Blood Pressure Chief Complaint (Provider): High Blood Pressure History Per: Patient History/Exam Limitations: no limitations Onset/Duration Of Symptoms: Mins (just prior to arrival) Current Symptoms Are (Timing): Still Present Additional Complaint(s): 57 year old male with history of hypertension presents to the ED for evaluation of high blood pressure after finding out just prior to arrival at his [facility] screening event that his BP was 217/128. He notes he is non-compliant with his HTN medication and does not remember the name of it. Patient is additionally complaining of associated dizziness, but otherwise denies chest pain, back pain, shortness of breath, and abdominal pain. PMD: none provided Past Medical History Reviewed: Historical Data, Nursing Documentation, Vital Signs Vital Signs: Last Vital Signs Temp 98.5 F 02/22/18 16:33 Pulse 88 02/22/18 16:33 Resp 20 02/22/18 16:33 BP 228/133 H 02/22/18 16:33 Pulse Ox 98 02/22/18 16:33 - Medical History PMH: Anxiety, Bipolar Disorder, HTN, Malignancy (testicular cancer), Schizophrenia Denies: HIV, Chronic Kidney Disease - Surgical History Surgical History: Appendectomy - Family History Family History: States: Unknown Family Hx - Social History Current smoker - smoking cessation education provided: No Alcohol: Social - Immunization History Hx Tetanus Toxoid Vaccination: No Hx Influenza Vaccination: Yes Hx Pneumococcal Vaccination: No - Home Medications Home Medications: Ambulatory Orders Medication Instructions Recorded Benztropine [Cogentin] 1 mg PO DAILY 11/13/17 Colchicine [Mitigare] 0.6 mg PO BID 11/13/17 Risperidone [Risperdal] 3 mg PO DAILY 11/13/17 Carvedilol [Coreg] 6.25 mg PO Q12 #30 tab 11/15/17 Furosemide [Lasix] 20 mg PO DAILY #30 tablet 11/15/17 Lisinopril [Zestril] 20 mg PO DAILY #30 tab 11/15/17 Pantoprazole [Protonix EC Tab] 40 mg PO DAILY #30 ect 11/15/17 - Allergies Allergies/Adverse Reactions: Allergies Allergy/AdvReac Type Severity Reaction Status Date / Time shellfish derived AdvReac Intermediate NAUSEA Verified 02/22/18 16:33 Review of Systems ROS Statement: Except As Marked, All Systems Reviewed And Found Negative Constitutional: Positive for: Other (high blood pressure) Cardiovascular: Negative for: Chest Pain Respiratory: Negative for: Shortness of Breath Gastrointestinal: Negative for: Abdominal Pain Musculoskeletal: Negative for: Back Pain Neurological: Positive for: Dizziness Physical Exam - Reviewed Nursing Documentation Reviewed: Yes Vital Signs Reviewed: Yes - Physical Exam Appears: Positive for: No Acute Distress (resting comfortably) Head Exam: Positive for: ATRAUMATIC, NORMOCEPHALIC Skin: Positive for: Normal Color, Warm, Dry Eye Exam: Positive for: Normal appearance, EOMI, PERRL ENT: Positive for: Normal ENT Inspection Neck: Positive for: Normal, Painless ROM, Supple Cardiovascular/Chest: Positive for: Regular Rate, Rhythm. Negative for: Murmur Respiratory: Positive for: Normal Breath Sounds. Negative for: Accessory Muscle Use, Respiratory Distress Gastrointestinal/Abdominal: Positive for: Normal Exam, Soft. Negative for: Tenderness Back: Positive for: Normal Inspection Extremity: Positive for: Normal ROM Neurologic/Psych: Positive for: Alert, Oriented (x3) - Laboratory Results Result Diagrams: 02/22/18 17:46 02/22/18 17:46 - ECG O2 Sat by Pulse Oximetry: 98 (RA) Pulse Ox Interpretation: Normal Medical Decision Making Medical Decision Making: Time: 173 Initial Impression: high blood pressure Initial Plan: --CT Head without contrast --EKG --CMP --Trop I --U-dip --CBC with differential --PTT / PT --CXR --Cardizem 20mg IVP --Urinalysis Scribe Attestation: Documented by Sully Navas acting as a scribe for Sarah Lennon MD. Provider Scribe Attestation: All medical record entries made by the Scribe were at my direction and personally dictated by me. I have reviewed the chart and agree that the record accurately reflects my personal performance of the history, physical exam, medical decision making, and the department course for this patient. I have also personally directed, reviewed, and agree with the discharge instructions and disposition. Disposition - Clinical Impression Clinical Impression: Hypertension - Disposition Referrals: [facility] [Outside] Disposition: Transfer of Care Disposition Time: 19:00 Condition: STABLE Additional Instructions: TAKE YOUR BLOOD PRESSURE MEDICATIONS! Instructions: High Blood Pressure in Adults Forms: [employer] (Czech) Patient Signed Over To: Mina Busch
[2018-02-22 17:49] LABS: BASO # 0.1 K/uL (0.0-0.2); BASO % 0.8 % (0.0-2.0); EOS # 0.2 K/uL (0.0-0.7); EOS % 3.1 % (0.0-4.0); HEMOGLOBIN 13.8 g/dL (12.0-18.0); LYMPH # 1.4 K/uL (1.0-4.3); LYMPH % 17.5 % (20.0-40.0); MEAN CORPUSCULAR HEMOGLOBIN 31.3 pg (27.0-31.0); MEAN CORPUSCULAR HGB CONC 33.3 g/dL (33.0-37.0); MEAN PLATELET VOLUME 9.6 fl (7.2-11.7); MONO # 0.9 K/uL (0.0-0.8); NEUT # 5.2 K/uL (1.8-7.0); NEUT % 67.6 % (50.0-75.0); RBC 4.42 Mil/uL (4.40-5.90); RED CELL DISTRIBUTION WIDTH 14.7 % (11.5-14.5); WHITE BLOOD COUNT 7.8 K/uL (4.8-10.8)
[2018-02-22 17:56] LABS: INR 1.1; PROTHROMBIN TIME 12.2 Seconds (9.8-13.1)
[2018-02-22 17:59] LABS: PARTIAL THROMBOPLASTIN TIME 31.8 Seconds (25.6-37.1)
[2018-02-22 18:00] LABS: ALB/GLOB RATIO 1.1 (1.0-2.1); ALBUMIN 3.5 g/dL (3.5-5.0); CALCIUM 9.1 mg/dL (8.4-10.2)
[2018-02-22 18:11] LABS: TROPONIN I 0.038 ng/mL (0.00-0.120)
[2018-02-22 19:14] LABS: URINE BILIRUBIN NEGATIVE (NEGATIVE); URINE BLOOD NEGATIVE (NEGATIVE); URINE CLARITY CLEAR (Clear); URINE COLOR YELLOW (YELLOW); URINE GLUCOSE (UA) NEG (Normal); URINE LEUKOCYTE ESTERASE NEG Leu/uL (Negative); URINE PROTEIN 30 mg/dL (NEGATIVE); URINE UROBILINOGEN 0.2-1.0 mg/dL (0.2-1.0)
--- NOTE | 2018-02-22 19:16 | ED PDOC ---
- Laboratory Results Result Diagrams: 02/22/18 17:46 02/22/18 17:46 - ECG O2 Sat by Pulse Oximetry: 98 (RA) Medical Decision Making Medical Decision Makin Patient care endorsed from Dr. Lennon to Dr. Busch pending reevaluation. 2114 Labs reviewed for no clinically significant abnormalities. Upon reevaluation, patient's blood pressure normalized and he remained asymptomatic. Provider reinforced need to follow up with PMD for his hypertension. -------- --------- Scribe Attestation: Documented by Sully Navas acting as a scribe for Mina Busch MD. Provider Scribe Attestation: All medical record entries made by the Scribe were at my direction and personally dictated by me. I have reviewed the chart and agree that the record accurately reflects my personal performance of the history, physical exam, medical decision making, and the department course for this patient. I have also personally directed, reviewed, and agree with the discharge instructions and disposition. Disposition Counseled Patient/Family Regarding: Studies Performed, Diagnosis, Need For Followup - Clinical Impression Clinical Impression: Hypertension - POA Present On Arrival: None - Disposition Referrals: [facility] [Outside] Disposition: Routine/Home Disposition Time: 21:18 Condition: STABLE Additional Instructions: TAKE YOUR BLOOD PRESSURE MEDICATIONS! Instructions: High Blood Pressure in Adults Forms: [employer] (Kiswahili)
[2018-02-22 21:17] VITALS: RESP 15
[2018-02-22 21:40] VITALS: BP 171/72; PULSE 85; TEMP 98.1
--- NOTE | 2018-02-22 22:28 | CARD ---
APPROVED REPORT Date of service: 02/22/2018 EKG Measurement Heart [id number] <Conclusion> Normal sinus rhythm Possible Left atrial enlargement T wave abnormality, consider inferolateral ischemia Abnormal ECG
[2018-02-23 10:34] VITALS: O2SAT 98
--- NOTE | 2018-02-23 11:10 | CT ---
Date of service: 02/22/2018 PROCEDURE: CT HEAD WITHOUT CONTRAST. HISTORY: Dizziness COMPARISON: Head CT without contrast 03/07/2015 and 11/12/2017. TECHNIQUE: Axial computed tomography images were obtained through the head/brain without intravenous contrast. Radiation dose: Total exam DLP = 992.73 mGy-cm. This CT exam was performed using one or more of the following dose reduction techniques: Automated exposure control, adjustment of the mA and/or kV according to patient size, and/or use of iterative reconstruction technique. FINDINGS: HEMORRHAGE: No intracranial hemorrhage. BRAIN: There is questionable lucency at the bilateral external capsules dating back to 03/07/2015 reflecting a chronic process, potentially even limited chronic microangiopathy with remainder of the brain normal in overall density above and below the tentorium including throughout the brainstem. There is no mass effect with cortex unremarkable above and below the tentorium. No suspicious extra-axial collection with midline anatomy unremarkable. VENTRICLES: Unremarkable. No hydrocephalus. CALVARIUM: Unremarkable. PARANASAL SINUSES: Unremarkable as visualized. No significant inflammatory changes. MASTOID AIR CELLS: Unremarkable as visualized. No inflammatory changes. OTHER FINDINGS: None. IMPRESSION: Questionable limited lucency at the bilateral external capsules, apparently a likely long-standing finding. No definite interval acute intracranial findings. Follow-up elective MRI is advised when feasible. Examination otherwise unremarkable. PA review added. Discordant preliminary report from [employer] (external capsule findings as impression above).
--- NOTE | 2018-02-23 14:46 | RAD ---
Date of service: 02/22/2018 HISTORY: Elevated BP COMPARISON: No prior. FINDINGS: LUNGS: No acute infiltrate bilaterally. Linear atelectasis left base. PLEURA: No significant pleural effusion identified, no pneumothorax apparent. CARDIOVASCULAR: No aortic atherosclerotic calcification present. Cardiomegaly reiterated. Mild moderate pulmonary vascular congestion. OSSEOUS STRUCTURES: No significant abnormalities. VISUALIZED UPPER ABDOMEN: Normal. OTHER FINDINGS: None. IMPRESSION: [id number] pulmonary vascular congestion. Linear atelectasis left base.
== END 2018-02-22 21:40 | disposition home or self-care (01) ==
LOC: H.ER 16:29
DX: I10 Essential (primary) hypertension (principal); Z86.59 Personal history of other mental and behavioral disorders; Z91.19 Patient's noncompliance with other medical treatment and regimen
CPT/HCPCS: 70450; 71045; 80053; 81003; 84484; 85025; 85610; 85730; 93005; 96374; 99285; J1940

== ENCOUNTER 2018-04-04 10:39 | Inpatient (IN) | payer MEDICAID, OTHER ==
--- NOTE | 2018-04-04 12:32 | ED PDOC ---
HPI: SOB/CHF/COPD Time Seen by Provider: 04/04/18 12:05 Chief Complaint (Nursing): Shortness Of Breath Chief Complaint (Provider): Shortness Of Breath History Per: Patient History/Exam Limitations: no limitations Onset/Duration Of Symptoms: Days Current Symptoms Are (Timing): Still Present Exacerbating Factor(s): Exertion, Laying Flat Additional Complaint(s): 58 y/o male with a PMHx of HTN, Bipolar Disorder, Kidney Disease and Gout presents to the ED for evaluation of shortness of breath. Patient states symptoms worsen when he is lying flat. Patient additionally reports of 1 block of dyspnea on exertion. Patient states he has also developed bilateral leg swelling over the course of one week. Otherwise, patient denies chest pain and cough. Patient reports he did not take his HTN medications today. PMD: In [facility], [place] Past Medical History Vital Signs: Last Vital Signs Temp 98.8 F 04/04/18 10:49 Pulse 88 04/04/18 10:49 Resp 18 04/04/18 10:49 BP 185/139 H 04/04/18 10:49 Pulse Ox 98 04/04/18 10:49 - Medical History PMH: Anxiety, Bipolar Disorder, HTN, Malignancy (testicular cancer), Gabe izophrenia Denies: HIV, Chronic Kidney Disease Other PMH: Gout and Kidney Disease - Surgical History Surgical History: Appendectomy - Family History Family History: States: Unknown Family Hx - Immunization History Hx Tetanus Toxoid Vaccination: No Hx Influenza Vaccination: Yes Hx Pneumococcal Vaccination: No - Home Medications Home Medications: Ambulatory Orders Medication Instructions Recorded Benztropine [Cogentin] 1 mg PO HS 11/13/17 Risperidone [Risperdal] 3 mg PO HS 11/13/17 Allopurinol [Zyloprim] 300 mg PO DAILY 04/04/18 Losartan [Cozaar] 100 mg PO DAILY 04/04/18 hydrOXYzine Pamoate [Vistaril] 25 mg PO Q12 04/04/18 Furosemide [Lasix] 40 mg PO DAILY #30 tablet 04/07/18 - Allergies Allergies/Adverse Reactions: Allergies Allergy/AdvReac Type Severity Reaction Status Date / Time shellfish derived AdvReac Intermediate NAUSEA Verified 04/04/18 10:57 Review of Systems ROS Statement: Except As Marked, All Systems Reviewed And Found Negative Cardiovascular: Negative for: Chest Pain Respiratory: Positive for: Shortness of Breath. Negative for: Cough Physical Exam - Reviewed Nursing Documentation Reviewed: Yes Vital Signs Reviewed: Yes - Physical Exam Appears: Positive for: No Acute Distress Head Exam: Positive for: ATRAUMATIC Skin: Positive for: Normal Color, Warm, Dry Eye Exam: Positive for: Normal appearance, EOMI, PERRL Neck: Positive for: Normal, Painless ROM, Supple Cardiovascular/Chest: Positive for: Regular Rate, Rhythm Respiratory: Positive for: Other (Orthopnea) Extremity: Positive for: Pedal Edema (2+ pitting edema bilaterally) - Laboratory Results Result Diagrams: 04/04/18 12:50 04/04/18 15:00 - ECG O2 Sat by Pulse Oximetry: 98 (RA) Pulse Ox Interpretation: Normal Medical Decision Making Medical Decision Making: Time: 1231 Impression: CHF Plan: -- EKG -- B-Type Natriuretic Peptide -- CMP -- Troponin I -- ED Urine Dipstick -- CBC with Differential -- D Dimer -- PTT -- Prothrombin Time -- CXR One View -- Blood Culture -- Urinalysis -- US Duplex Lower Extremity Vein Bilateral Time: 1457 Plan: -- Labs demonstrate an elevated D Dimer at 303. CT Angio Chest ordered. -- CT Angio Chest PE Protocol -- ProBNP -- CMP -- Troponin I Time: 1500 -- Patient endorsed to Dr. Partida, pending US, CTA, Troponin I, CMP, ProBNP and final ER disposition. Scribe Attestation: Documented by David Escobar, acting as a scribe for Sarah Lennon MD. Provider Scribe Attestation: All medical record entries made by the Scribe were at my direction and personally dictated by me. I have reviewed the chart and agree that the record accurately reflects my personal performance of the history, physical exam, m edical decision making, and the department course for this patient. I have also personally directed, reviewed, and agree with the discharge instructions and disposition. Disposition - Clinical Impression Clinical Impression: CHF (congestive heart failure), Hypertension - Patient ED Disposition Is Patient to be Admitted: Transfer of Care - Disposition Disposition: Transfer of Care Disposition Time: 15:00 Condition: FAIR Patient Signed Over To: Charles Partida Handoff Comments: pending US, CTA, Troponin I, CMP, ProBNP and final ER disp osition.
[2018-04-04 13:26] LABS: BASO % 0.2 % (0.0-2.0); EOS # 0.1 K/uL (0.0-0.7); EOS % 1.8 % (0.0-4.0); HEMOGLOBIN 14.7 g/dL (12.0-18.0); LYMPH # 1.5 K/uL (1.0-4.3); LYMPH % 19.1 % (20.0-40.0); MEAN CELL VOLUME 94.1 fl (80.0-94.0); MEAN CORPUSCULAR HEMOGLOBIN 31.1 pg (27.0-31.0); MEAN PLATELET VOLUME 9.2 fl (7.2-11.7); MONO # 0.7 K/uL (0.0-0.8); MONO % 8.4 % (0.0-10.0); NEUT # 5.5 K/uL (1.8-7.0); NEUT % 70.5 % (50.0-75.0); NRBC % 0.2 % (0.0-0.0); RBC 4.72 Mil/uL (4.40-5.90); WHITE BLOOD COUNT 7.8 K/uL (4.8-10.8)
[2018-04-04 13:30] LABS: SQUAMOUS EPITHIAL < 1 /hpf (0-5); URINE BILIRUBIN NEGATIVE (NEGATIVE); URINE BLOOD NEGATIVE (NEGATIVE); URINE CLARITY CLEAR (Clear); URINE COLOR YELLOW (YELLOW); URINE GLUCOSE (UA) NEG (NEGATIVE); URINE LEUKOCYTE ESTERASE NEG Leu/uL (Negative); URINE PROTEIN 30 mg/dL (NEGATIVE); URINE UROBILINOGEN 0.2-1.0 mg/dL (0.2-1.0)
[2018-04-04 13:35] LABS: PROTHROMBIN TIME 11.9 Seconds (9.8-13.1)
[2018-04-04 13:37] LABS: PARTIAL THROMBOPLASTIN TIME 31.7 Seconds (25.6-37.1)
--- NOTE | 2018-04-04 14:49 | RAD ---
Date of service: 04/04/2018 HISTORY: SOB COMPARISON: None available. FINDINGS: LUNGS: Diffuse bilateral infiltrates likely representing mild pulmonary venous congestive changes however superimposed pneumonia not excluded. PLEURA: No significant pleural effusion identified, no pneumothorax apparent. CARDIOVASCULAR: Mild aortic atherosclerotic calcification present. Marked cardiomegaly. No pulmonary vascular congestion. OSSEOUS STRUCTURES: No significant abnormalities. VISUALIZED UPPER ABDOMEN: Normal. OTHER FINDINGS: None. IMPRESSION: Diffuse bilateral infiltrates likely representing mild pulmonary venous congestive changes however superimposed pneumonia not excluded.
[2018-04-04 15:28] LABS: ALBUMIN 3.7 g/dL (3.5-5.0); ALT/SGPT 55 U/L (21-72); AST/SGOT 38 U/L (17-59); BLOOD UREA NITROGEN 26 mg/dl (9-20); CALCIUM 9.3 mg/dL (8.4-10.2); GFR NON-AFRICAN AMERICAN 52
--- NOTE | 2018-04-04 15:32 | ED PDOC ---
- Laboratory Results Result Diagrams: 04/04/18 12:50 04/04/18 15:00 Interpretation Of Abn Labs: probnp 2049 - ECG ECG: Positive for: Interpreted By Me, Viewed By Me Interpretation Of Abn EKG: LVH O2 Sat by Pulse Oximetry: 98 (RA) Pulse Ox Interpretation: Normal - Radiology X-Ray: Read By Radiologist X-Ray Interpretation: Other (vascular congestion) - CT Scan/US ct Other Rad Studies (CT/US): Read By Radiologist Other Rad Interpretation: no pe - Progress ED Course And Treament: 1650: Stable. Has chf, acute. Will give lasix and nitro. Will need admit. 1750: Spoke with Dr. Andrews. Will admit. Wants cards consult. Stable. Pain free. Less dyspnea. Medical Decision Making Medical Decision Making: Time: 1500 -- Patient endorsed to me by Dr. Lennon, pending US, CTA, Troponin I, CMP, ProBNP and final ER disposition. Time: 154 -- Patient requesting anti-nausea medications at this time. Patient states he typically develops nausea after contrast. -- Zofran Inj 4 mg IV ordered Time: 155 US RESULTS FINDINGS: COMMON FEMORAL VEIN: Right CFV: Unremarkable. Left CFV: Unremarkable. SUPERFICIAL FEMORAL VEIN: Right SFV: Unremarkable. Left SFV: Unremarkable. POPLITEAL VEIN: Right Popliteal: Unremarkable. Left Popliteal: Unremarkable. POSTERIOR TIBIAL VEIN: Right PTV: Unremarkable. Left PTV: Unremarkable. OTHER FINDINGS: None. IMPRESSION: No evidence of deep venous thrombosis in the right or left lower extremity. Scribe Attestation: Documented by David Escobar, acting as a scribe for Charles Partida MD. Provider Scribe Attestation: All medical record entries made by the Scribe were at my direction and personally dictated by me. I have reviewed the chart and agree that the record accurately reflects my personal performance of the history, physical exam, medical decision making, and the department course for this patient. I have also personally directed, reviewed, and agree with the discharge instructions and disposition. Disposition Counseled Patient/Family Regarding: Studies Performed, Diagnosis, Need For Followup - Clinical Impression Clinical Impression: CHF (congestive heart failure), Hypertension - POA Present On Arrival: None - Disposition Disposition: Admitted as In-Patient Disposition Time: 17:10 Condition: FAIR
[2018-04-04 15:40] LABS: B-TYPE NATRIURETIC PEPTIDE 2050 pg/ml (0-900)
--- NOTE | 2018-04-04 15:56 | US ---
Date of service: 04/04/2018 PROCEDURE: Bilateral lower extremity venous duplex Doppler. HISTORY: BLE swelling COMPARISON: None available. TECHNIQUE: Bilateral common femoral, superficial femoral, popliteal and posterior tibial veins were evaluated. Flow was assessed with color Doppler, compressibility, assessment of phasic flow and augmentation response. FINDINGS: COMMON FEMORAL VEIN: Right CFV: Unremarkable. Left CFV: Unremarkable. SUPERFICIAL FEMORAL VEIN: Right SFV: Unremarkable. Left SFV: Unremarkable. POPLITEAL VEIN: Right Popliteal: Unremarkable. Left Popliteal: Unremarkable. POSTERIOR TIBIAL VEIN: Right PTV: Unremarkable. Left PTV: Unremarkable. OTHER FINDINGS: None. IMPRESSION: No evidence of deep venous thrombosis in the right or left lower extremity..
[2018-04-04] MEDS ORDERED: Sodium Chloride 0.9% 50 ML IV ONE (16:00)
[2018-04-04] MEDS ORDERED: Iodixanol 320 MG/ML 100 ML BOTTLE IV ONE (16:00)
--- NOTE | 2018-04-04 17:33 | CT ---
Date of service: 04/04/2018 CTA chest PE protocol Indication: SOB Technique: Contiguous axial images were obtained through the chest with intravenous contrast enhancement. Sagittal and coronal reconstructions were generated and reviewed. This CT exam was performed using 1 or more of the following dose reduction techniques: Automated exposure control, adjustment of the MAA and/or kV according to patient size, and/or use of iterative reconstruction technique. IV contrast: 95 mL Visipaque 320 IV Radiation dose (DLP): 383.4 MGy-cm. Comparison: Chest x-ray performed 04/04/18 Findings: Examination limited by habitus. Visualized portions of the inferior thyroid gland appear unremarkable. The mediastinal and hilar vascular structures appear within normal limits. The heart appears within normal limits of size. Sub cm prevascular/mediastinal and right hilar lymph nodes. Atherosclerotic calcifications of the aorta. No large central or segmental pulmonary embolus evident. Small bilateral pleural effusions and bibasilar atelectasis/infiltrates. No pneumothorax. No suspicious pulmonary nodules measuring greater than 5 mm. Small hiatal hernia/distal esophageal wall thickening. Limited visualized portions of the upper abdomen appear grossly unremarkable. Multilevel degenerative changes of the spine. Impression: No large central or segmental pulmonary embolus identified. Sub cm mediastinal/prevascular and right hilar lymph nodes. Small bilateral pleural effusions and bibasilar atelectasis/infiltrates.
--- NOTE | 2018-04-04 21:53 | CARD ---
APPROVED REPORT Date of service: 04/04/2018 EKG Measurement Heart [id number] [id number] <Conclusion> Normal sinus rhythm Possible Left atrial enlargement Left ventricular hypertrophy with repolarization abnormality Abnormal ECG
[2018-04-05 07:24] LABS: TROPONIN I 0.044 ng/mL (0.00-0.120)
[2018-04-05] MEDS: Oxycodone/Acetaminophen 5/325 mg Tab PO PRN ×2 (08:17→16:43)
--- NOTE | 2018-04-05 11:46 | CP.PCM.CON ---
History of Present Illness - History of Present Illness History of Present Illness: Cardiology 58 y/o male presents to the ED for evaluation of shortness of breath. Patient states symptoms worsen when he is lying flat. Patient additionally reports of 1 block of dyspnea on exertion. Patient states he has also developed bilateral leg swelling over the course of 2 weeks. Otherwise, patient denies chest pain and cough. Patient does not know the last time he took his meds Does not f/u w/ his physician in [facility], [place], operated by [facility] Denies SOB today PMH: HTN CHF I50.33 Bipolar disorder Gout Non compliance w/ Meds & medical f/u EKG: no acute changes Echo 11/2017 EF: 65% Troponin: neg BNP: 2049; 1919 Past Patient History - Infectious Disease Hx of Infectious Diseases: None - Past Medical History & Family History Past Medical History?: Yes - Past Social History Smoking Status: Never Smoked - CARDIAC Hx Cardiac Disorders: Yes Hx Hypertension: Yes - PULMONARY Hx Respiratory Disorders: No - NEUROLOGICAL Hx Neurological Disorder: No - HEENT Hx HEENT Problems: No - RENAL Hx Chronic Kidney Disease: Yes - ENDOCRINE/METABOLIC Hx Endocrine Disorders: No - HEMATOLOGICAL/ONCOLOGICAL Hx Blood Disorders: No Hx Human Immunodeficiency Virus (HIV): No - INTEGUMENTARY Hx Dermatological Problems: No - MUSCULOSKELETAL/RHEUMATOLOGICAL Hx Musculoskeletal Disorders: Yes Hx Falls: No Hx Gout: Yes - GASTROINTESTINAL Hx Gastrointestinal Disorders: No - GENITOURINARY/GYNECOLOGICAL Hx Genitourinary Disorders: No - PSYCHIATRIC Hx Psychophysiologic Disorder: Yes Hx Anxiety: Yes Hx Bipolar Disorder: Yes Hx Schizophrenia: Yes Hx Substance Use: No - SURGICAL HISTORY Hx Surgeries: Yes Hx Appendectomy: Yes - ANESTHESIA Hx Anesthesia: Yes Hx Anesthesia Reactions: No Hx Malignant Hyperthermia: No Has any member of the family had a problem w/ anesthesia?: No Meds Allergies/Adverse Reactions: Allergies Allergy/AdvReac Type Severity Reaction Status Date / Time shellfish derived AdvReac Intermediate NAUSEA Verified 04/04/18 10:57 - Medications Medications: Current Medications Allopurinol (Zyloprim) 300 mg PO DAILY [facility] Last Admin: 04/05/18 08:29 Dose: 300 mg Benztropine Mesylate (Cogentin) 1 mg PO HS [facility] Last Admin: 04/04/18 21:52 Dose: 1 mg Enoxaparin Sodium (Lovenox) 40 mg SC DAILY [facility]; Protocol Furosemide (Lasix) 40 mg IV DAILY [facility] Losartan Potassium (Cozaar) 50 mg PO DAILY [facility] Oxycodone/Acetaminophen (Percocet 5/325 Mg Tab) 1 tab PO Q4 PRN PRN Reason: Pain, moderate (4-7) Stop: 04/08/18 08:00 Last Admin: 04/05/18 08:17 Dose: 1 tab Risperidone (Risperdal Tab) 3 mg PO HS [facility] Last Admin: 04/04/18 21:51 Dose: 3 mg Physical Exam - Constitutional Appears: Well - Head Exam Head Exam: ATRAUMATIC - Eye Exam Eye Exam: Normal appearance - ENT Exam ENT Exam: Normal Exam - Respiratory Exam Respiratory Exam: NORMAL BREATHING PATTERN - Cardiovascular Exam Cardiovascular Exam: REGULAR RHYTHM - GI/Abdominal Exam GI & Abdominal Exam: Normal Bowel Sounds Results - Vital Signs Recent Vital Signs: Last Vital Signs Temp 98.6 F 04/05/18 08:23 Pulse 74 04/05/18 09:56 Resp 20 04/05/18 08:23 BP 89/55 L 04/05/18 09:56 Pulse Ox 93 L 04/05/18 08:23 - Labs Result Diagrams: 04/04/18 12:50 04/04/18 15:00 Labs: Laboratory Results - last 24 hr 04/04/18 04/04/18 04/04/18 12:50 12:50 13:00 WBC 7.8 RBC 4.72 Hgb 14.7 Hct 44.4 MCV 94.1 H MCH 31.1 H MCHC 33.0 RDW 14.0 Plt Count 243 MPV 9.2 Neut % (Auto) 70.5 Lymph % (Auto) 19.1 L [place] % (Auto) 8.4 Eos % (Auto) 1.8 Baso % (Auto) 0.2 Neut # (Auto) 5.5 Lymph # (Auto) 1.5 [place] # (Auto) 0.7 Eos # (Auto) 0.1 Baso # (Auto) 0.0 PT 11.9 INR 1.0 APTT 31.7 D-Dimer, Quantitative 303 H Sodium Potassium Chloride Carbon Dioxide Anion Gap BUN Creatinine Est GFR ( Amer) Est GFR (Non-Af Amer) Random Glucose Calcium Total Bilirubin AST ALT Alkaline Phosphatase Troponin I NT-Pro-B Natriuret Pep Total Protein Albumin Globulin Albumin/Globulin Ratio Triglycerides Cholesterol LDL Cholesterol Direct HDL Cholesterol Urine Color Yellow Urine Clarity Clear Urine pH 6.0 Ur Specific [place] 1.015 Urine Protein 30 Urine Glucose (UA) Neg Urine Ketones Negative Urine Blood Negative Urine Nitrate Negative Urine Bilirubin Negative Urine Urobilinogen 0.2-1.0 Ur Leukocyte Esterase Neg Urine RBC (Auto) < 1 Urine Microscopic WBC < 1 Ur Squamous Epith Cells < 1 04/04/18 04/05/18 15:00 05:30 WBC RBC Hgb Hct MCV MCH MCHC RDW Plt Count MPV Neut % (Auto) Lymph % (Auto) [place] % (Auto) Eos % (Auto) Baso % (Auto) Neut # (Auto) Lymph # (Auto) [place] # (Auto) Eos # (Auto) Baso # (Auto) PT INR APTT D-Dimer, Quantitative Sodium 142 Potassium 4.5 Chloride 105 Carbon Dioxide 30 Anion Gap 12 BUN 26 H Creatinine 1.4 Est GFR ( Amer) > 60 Est GFR (Non-Af Amer) 52 Random Glucose 100 Calcium 9.3 Total Bilirubin 0.4 AST 38 ALT 55 Alkaline Phosphatase 77 Troponin I 0.0330 0.0440 NT-Pro-B Natriuret Pep 2050 H 1920 H Total Protein 7.4 Albumin 3.7 Globulin 3.6 Albumin/Globulin Ratio 1.0 Triglycerides 84 D Cholesterol 178 LDL Cholesterol Direct 118 HDL Cholesterol 41 Urine Color Urine Clarity Urine pH Ur Specific [place] Urine Protein Urine Glucose (UA) Urine Ketones Urine Blood Urine Nitrate Urine Bilirubin Urine Urobilinogen Ur Leukocyte Esterase Urine RBC (Auto) Urine Microscopic WBC Ur Squamous Epith Cells Assessment & Plan (1) Acute diastolic (congestive) heart failure Assessment and Plan: Continue present [place] Status: Acute (2) Non compliance w medication regimen Status: Acute (3) Non compliance with medical treatment Status: Acute (4) Hypertension Status: Acute (5) Gout Status: Acute
[2018-04-05] MEDS: Enoxaparin 40 mg Syringe SC SCH (14:00)
--- NOTE | 2018-04-05 14:10 | HP ---
HISTORY OF PRESENT ILLNESS: Mr. Rubio is a 58-year-old male who was admitted via the emergency room because of progressively worsening shortness of breath, exercise intolerance and cough for the past several days prior to presentation. He denies chest pains, palpitations, has a history of hypertension, bipolar disorder, kidney disease and gout and has been noncompliant to most of his medications. He was seen in the emergency room for evaluation of shortness of breath and found to have congestive heart failure. He was, therefore, admitted for workup and therapy. He admits that he follows up at [facility], but is homeless and has not been more compliant with his medications and diet that he was supposed to. He denies smoking or alcohol use. FAMILY HISTORY: Noncontributory. SOCIAL HISTORY: He indicates that he does not smoke cigarettes and does not use alcohol and does not use drugs. REVIEW OF SYSTEMS: Essentially remarkable for swelling of legs. PHYSICAL EXAMINATION: GENERAL: The patient is alert, oriented, appears to be presently much more comfortable since admission. VITAL SIGNS: Blood pressure on admission was 185/139 with a pulse of 88, respiratory rate is 18. He is febrile. O2 sat is 98% on nasal cannula oxygen. SKIN: Shows fair turgor. HEENT: Pupils are reactive and accommodation. JVP flat. Mouth shows fair hygiene. LUNGS: Fair aeration bilaterally with scattered bilateral basilar rales. HEART: S1, S2. ABDOMEN: Soft, nontender, no organomegaly. CENTRAL NERVOUS SYSTEM: Exam grossly intact. LABORATORY DATA: Remarkable for WBC of 7.8, hemoglobin 14.7, platelet count 243,000. PT 11.9, INR 1. Sodium 142, potassium 4.5, BUN of 26, creatinine 1.4, glucose 100. Troponin 0.033. ProBNP 2050. Chest x-ray, diffuse bilateral infiltrates likely representing pulmonary venous congestion, pneumonia cannot be ruled out. CT scan of the chest, no large central pulmonary embolus. Subcentimeter mediastinal previous perivascular and right hilar lymph nodes, small bilateral pleural effusions, basilar atelectasis or infiltrates. EKG normal sinus rhythm, possible left atrial enlargement, left ventricular hypertrophy with repolarization. IMPRESSION: Acute congestive heart failure, poorly controlled hypertension, poor compliance to therapy, history of bipolar disorder. PLAN: The plan is intravenous diuretics. Monitor blood pressure closely. Cardiology evaluation, oxygen therapy, will refer for echocardiogram, further therapy will depend on findings. Lopez Andrews MD
[2018-04-05] MEDS: levoFLOXacin 500 mg in D5W 500 MG/100 ML BAG IVPB SCH (18:50)
[2018-04-06] MEDS: Enoxaparin 40 mg Syringe SC SCH (09:27)
[2018-04-06] MEDS: levoFLOXacin 500 mg in D5W 500 MG/100 ML BAG IVPB SCH (09:28)
--- NOTE | 2018-04-06 10:34 | CP.PCM.PN ---
Subjective - Date & Time of Evaluation Date of Evaluation: 04/06/18 Time of Evaluation: 10:34 - Subjective Subjective: SOB IMPROVING NO CHEST PAINS Objective - Vital Signs/Intake and Output Vital Signs (last 24 hours): Temp Pulse Resp BP Pulse Ox 97.7 F 76 20 165/105 H 99 04/06/18 08:38 04/06/18 09:26 04/06/18 08:38 04/06/18 09:27 04/06/18 08:38 - Medications Medications: Current Medications Acetaminophen (Tylenol 325mg Tab) 650 mg PO Q4 PRN PRN Reason: Fever >100.4 F Last Admin: 04/05/18 17:35 Dose: 650 mg Allopurinol (Zyloprim) 300 mg PO DAILY [facility] Last Admin: 04/06/18 09:27 Dose: 300 mg Benztropine Mesylate (Cogentin) 1 mg PO HS [facility] Last Admin: 04/05/18 21:10 Dose: 1 mg Enoxaparin Sodium (Lovenox) 40 mg SC DAILY [facility]; Protocol Last Admin: 04/06/18 09:27 Dose: 40 mg Furosemide (Lasix) 40 mg IV DAILY [facility] Last Admin: 04/06/18 09:27 Dose: 40 mg Levofloxacin/Dextrose (Levaquin 500mg) 500 mg in 100 mls @ 100 mls/hr IVPB DAILY [facility]; Protocol Last Admin: 04/06/18 09:28 Dose: 100 mls/hr Losartan Potassium (Cozaar) 100 mg PO DAILY [facility] Oxycodone/Acetaminophen (Percocet 5/325 Mg Tab) 1 tab PO Q4 PRN PRN Reason: Pain, moderate (4-7) Stop: 04/08/18 08:00 Last Admin: 04/05/18 16:43 Dose: 1 tab Risperidone (Risperdal Tab) 3 mg PO HS [facility] Last Admin: 04/05/18 21:10 Dose: 3 mg - Labs Labs: 04/04/18 12:50 04/04/18 15:00 PT 11.9 Seconds (9.8-13.1) 04/04/18 12:50 INR 1.0 04/04/18 12:50 APTT 31.7 Seconds (25.6-37.1) 04/04/18 12:50 - Constitutional Appears: No Acute Distress - Head Exam Head Exam: ATRAUMATIC, NORMAL INSPECTION, NORMOCEPHALIC - Eye Exam Eye Exam: EOMI, Normal appearance, PERRL Pupil Exam: NORMAL ACCOMODATION, PERRL - ENT Exam ENT Exam: Mucous Membranes Moist, Normal Exam - Neck Exam Neck Exam: Full ROM, Normal Inspection. absent: Lymphadenopathy - Respiratory Exam Respiratory Exam: Prolonged Expiratory Phase, Rales, NORMAL BREATHING PATTERN - Cardiovascular Exam Cardiovascular Exam: REGULAR RHYTHM, +S1, +S2. absent: Murmur - GI/Abdominal Exam GI & Abdominal Exam: Soft, Normal Bowel Sounds. absent: Tenderness - Rectal Exam Rectal Exam: NORMAL INSPECTION - Extremities Exam Extremities Exam: Full ROM, Normal Capillary Refill, Normal Inspection, Pedal Edema. absent: Joint Swelling Additional comments: PEDAL EDEMA IMPROVED - Back Exam Back Exam: NORMAL INSPECTION - Neurological Exam Neurological Exam: Alert, Awake, CN II-XII Intact, Normal Gait, Oriented x3 - Psychiatric Exam Psychiatric exam: Normal Affect, Normal Mood - Skin Skin Exam: Dry, Intact, Normal Color, Warm Assessment and Plan - Assessment and Plan (Free Text) Assessment: CHF IMPROVING COPD IMPROVING Plan: REPEAT CXR CONTINUE CURRENT RX D/C IN AM IF STABLE
--- NOTE | 2018-04-06 12:39 | CP.PCM.PN ---
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 BR Objective - Vital Signs/Intake and Output Vital Signs (last 24 hours): Temp Pulse Resp BP Pulse Ox 97.7 F 69 20 156/99 H 95 04/06/18 12:25 04/06/18 12:25 04/06/18 12:25 04/06/18 12:25 04/06/18 12:25 - Medications Medications: Current Medications Acetaminophen (Tylenol 325mg Tab) 650 mg PO Q4 PRN PRN Reason: Fever >100.4 F Last Admin: 04/05/18 17:35 Dose: 650 mg Allopurinol (Zyloprim) 300 mg PO DAILY [facility] Last Admin: 04/06/18 09:27 Dose: 300 mg Benztropine Mesylate (Cogentin) 1 mg PO HS [facility] Last Admin: 04/05/18 21:10 Dose: 1 mg Enoxaparin Sodium (Lovenox) 40 mg SC DAILY [facility]; Protocol Last Admin: 04/06/18 09:27 Dose: 40 mg Furosemide (Lasix) 40 mg IV DAILY [facility] Last Admin: 04/06/18 09:27 Dose: 40 mg Levofloxacin/Dextrose (Levaquin 500mg) 500 mg in 100 mls @ 100 mls/hr IVPB DAILY [facility]; Protocol Last Admin: 04/06/18 09:28 Dose: 100 mls/hr Losartan Potassium (Cozaar) 100 mg PO DAILY [facility] Oxycodone/Acetaminophen (Percocet 5/325 Mg Tab) 1 tab PO Q4 PRN PRN Reason: Pain, moderate (4-7) Stop: 04/08/18 08:00 Last Admin: 04/05/18 16:43 Dose: 1 tab Risperidone (Risperdal Tab) 3 mg PO HS [facility] Last Admin: 04/05/18 21:10 Dose: 3 mg - Labs Labs: 04/04/18 12:50 04/04/18 15:00 PT 11.9 Seconds (9.8-13.1) 04/04/18 12:50 INR 1.0 04/04/18 12:50 APTT 31.7 Seconds (25.6-37.1) 04/04/18 12:50 Assessment and Plan (1) Acute diastolic (congestive) heart failure Status: Acute (2) Non compliance w medication regimen Status: Acute (3) Non compliance with medical treatment Status: Acute (4) Hypertension Status: Acute (5) Gout Status: Acute
--- NOTE | 2018-04-06 13:35 | RAD ---
Date of service: 04/06/2018 HISTORY: CHF COMPARISON: Comparison chest dated 04/04/2018 TECHNIQUE: Chest PA and lateral FINDINGS: LUNGS: Persistent mild but improved pulmonary venous congestive changes with minor residual bilateral lower lobe alveolar-type infiltrates and small bilateral effusions. PLEURA: No significant pleural effusion identified. No pneumothorax apparent. CARDIOVASCULAR: Mild aortic atherosclerotic calcification present. Cardiomegaly.. . OSSEOUS STRUCTURES: No significant abnormalities. VISUALIZED UPPER ABDOMEN: Normal. OTHER FINDINGS: None. IMPRESSION: Persistent mild but improved pulmonary venous congestive changes with minor residual bilateral lower lobe alveolar-type infiltrates and small bilateral effusions. PLEURA:
[2018-04-06 20:04] VITALS: RESP 18
--- NOTE | 2018-04-06 20:59 | CARD ---
APPROVED REPORT Date of service: 04/05/2018 EKG Measurement Heart [id number] <Conclusion> Normal sinus rhythm Possible Left atrial enlargement T wave abnormality, consider inferolateral ischemia Abnormal ECG
[2018-04-07 07:52] VITALS: PULSE 70; TEMP 98.1
[2018-04-07] MEDS: levoFLOXacin 500 mg in D5W 500 MG/100 ML BAG IVPB SCH (09:34)
[2018-04-07] MEDS: Enoxaparin 40 mg Syringe SC SCH (09:35)
[2018-04-07 11:59] VITALS: BP 123/78
--- NOTE | 2018-04-07 12:06 | CP.PCM.DIS ---
Provider - Provider Date of Admission: 04/04/18 17:53 Attending physician: Lopez Andrews MD Consults: 04/04/18 17:53 Cardiology Consult Stat Comment: Consulting Provider: Nico Martin V Consulting Physician: Nico Martin V Reason for Consult: chf Time Spent in preparation of Discharge (in minutes): 35 Diagnosis - Discharge Diagnosis (1) CHF (congestive heart failure) Status: Acute (2) Hypertension Status: Acute (3) Non compliance w medication regimen Status: Acute (4) Non compliance with medical treatment Status: Acute (5) Dyspnea on exertion Status: Acute Hospital Course - Lab Results Lab Results: Micro Results 04/05/18 18:00 Blood Blood Culture - Preliminary NO GROWTH AFTER 24 HOURS 04/05/18 18:30 Blood Blood Culture - Preliminary NO GROWTH AFTER 24 HOURS 04/04/18 14:00 Blood-Venous Blood Culture - Preliminary NO GROWTH AFTER 48 HOURS 04/04/18 12:50 Blood-Venous Blood Culture - Preliminary NO GROWTH AFTER 48 HOURS Most Recent Lab Values WBC 7.8 K/uL (4.8-10.8) 04/04/18 12:50 RBC 4.72 Mil/uL (4.40-5.90) 04/04/18 12:50 Hgb 14.7 g/dL (12.0-18.0) 04/04/18 12:50 Hct 44.4 % (35.0-51.0) 04/04/18 12:50 MCV 94.1 fl (80.0-94.0) H 04/04/18 12:50 MCH 31.1 pg (27.0-31.0) H 04/04/18 12:50 MCHC 33.0 g/dL (33.0-37.0) 04/04/18 12:50 RDW 14.0 % (11.5-14.5) 04/04/18 12:50 Plt Count 243 K/uL (130-400) 04/04/18 12:50 MPV 9.2 fl (7.2-11.7) 04/04/18 12:50 Neut % (Auto) 70.5 % (50.0-75.0) 04/04/18 12:50 Lymph % (Auto) 19.1 % (20.0-40.0) L 04/04/18 12:50 Sharkey % (Auto) 8.4 % (0.0-10.0) 04/04/18 12:50 Eos % (Auto) 1.8 % (0.0-4.0) 04/04/18 12:50 Baso % (Auto) 0.2 % (0.0-2.0) 04/04/18 12:50 Neut # (Auto) 5.5 K/uL (1.8-7.0) 04/04/18 12:50 Lymph # (Auto) 1.5 K/uL (1.0-4.3) 04/04/18 12:50 Sharkey # (Auto) 0.7 K/uL (0.0-0.8) 04/04/18 12:50 Eos # (Auto) 0.1 K/uL (0.0-0.7) 04/04/18 12:50 Baso # (Auto) 0.0 K/uL (0.0-0.2) 04/04/18 12:50 PT 11.9 Seconds (9.8-13.1) 04/04/18 12:50 INR 1.0 04/04/18 12:50 APTT 31.7 Seconds (25.6-37.1) 04/04/18 12:50 D-Dimer, Quantitative 303 ng/mlDDU (0-230) H 04/04/18 12:50 Sodium 142 mmol/l (132-148) 04/04/18 15:00 Potassium 4.5 MMOL/L (3.6-5.0) 04/04/18 15:00 Chloride 105 mmol/L (98-107) 04/04/18 15:00 Carbon Dioxide 30 mmol/L (22-30) 04/04/18 15:00 Anion Gap 12 (10-20) 04/04/18 15:00 BUN 26 mg/dl (9-20) H 04/04/18 15:00 Creatinine 1.4 mg/dl (0.8-1.5) 04/04/18 15:00 Est GFR ( Amer) > 60 04/04/18 15:00 Est GFR (Non-Af Amer) 52 04/04/18 15:00 Random Glucose 100 mg/dL (75-110) 04/04/18 15:00 Calcium 9.3 mg/dL (8.4-10.2) 04/04/18 15:00 Total Bilirubin 0.4 mg/dl (0.2-1.3) 04/04/18 15:00 AST 38 U/L (17-59) 04/04/18 15:00 ALT 55 U/L (21-72) 04/04/18 15:00 Alkaline Phosphatase 77 U/L (38-126) 04/04/18 15:00 Troponin I 0.0490 ng/mL (0.00-0.120) 04/05/18 23:35 NT-Pro-B Natriuret Pep 1920 pg/ml (0-900) H 04/05/18 05:30 Total Protein 7.4 G/DL (6.3-8.2) 04/04/18 15:00 Albumin 3.7 g/dL (3.5-5.0) 04/04/18 15:00 Globulin 3.6 gm/dL (2.2-3.9) 04/04/18 15:00 Albumin/Globulin Ratio 1.0 (1.0-2.1) 04/04/18 15:00 Triglycerides 84 mg/DL (0-149) D 04/05/18 05:30 Cholesterol 178 mg/dL (0-199) 04/05/18 05:30 LDL Cholesterol Direct 118 mg/dL (0-129) 04/05/18 05:30 HDL Cholesterol 41 MG/DL (30-70) 04/05/18 05:30 Urine Color Yellow (YELLOW) 04/04/18 13:00 Urine Clarity Clear (Clear) 04/04/18 13:00 Urine pH 6.0 (5.0-8.0) 04/04/18 13:00 Ur Specific [place] 1.015 (1.003-1.030) 04/04/18 13:00 Urine Protein 30 mg/dL (NEGATIVE) 04/04/18 13:00 Urine Glucose (UA) Neg mg/dL (NEGATIVE) 04/04/18 13:00 Urine Ketones Negative mg/dL (NEGATIVE) 04/04/18 13:00 Urine Blood Negative (NEGATIVE) 04/04/18 13:00 Urine Nitrate Negative (NEGATIVE) 04/04/18 13:00 Urine Bilirubin Negative (NEGATIVE) 04/04/18 13:00 Urine Urobilinogen 0.2-1.0 mg/dL (0.2-1.0) 04/04/18 13:00 Ur Leukocyte Esterase Neg Hoa/uL (Negative) 04/04/18 13:00 Urine RBC (Auto) < 1 /hpf (0-3) 04/04/18 13:00 Urine Microscopic WBC < 1 /hpf (0-5) 04/04/18 13:00 Ur Squamous Epith Cells < 1 /hpf (0-5) 04/04/18 13:00 - Hospital Course Hospital Course: clinical condition improved no chest pains/sob Discharge Exam - Head Exam Head Exam: ATRAUMATIC, NORMAL INSPECTION, NORMOCEPHALIC - Eye Exam Eye Exam: EOMI, Normal appearance, PERRL Pupil Exam: NORMAL ACCOMODATION, PERRL - Respiratory Exam Respiratory Exam: Prolonged Expiratory Phase, NORMAL BREATHING PATTERN - GI/Abdominal Exam GI & Abdominal Exam: Normal Bowel Sounds - Rectal Exam Rectal Exam: NORMAL INSPECTION - Neurological Exam Neurological exam: Alert, CN II-XII Intact, Normal Gait, Oriented x3, Reflexes Normal - Psychiatric Exam Psychiatric exam: Normal Affect, Normal Mood - Skin Skin Exam: Dry, Intact, Normal Color, Warm Discharge Plan - Follow Up Plan Condition: FAIR Disposition: HOME/ ROUTINE Additional Instructions: discharge home today advised compliance to meds and diet
[2018-04-07 22:52] VITALS: O2SAT 98
--- NOTE | 2018-04-09 09:22 | PQF ---
PROVIDER RESPONSE TEXT: NO EVIDENCE OF KIDNEY FAILURE REVIEWER QUERY TEXT: Kidney Disease, Chronic CKD Stage Chronic Kidney Disease (CKD) is documented in the Medical Record. Please specify the disease stage ( includes probable or suspected) if in agreement versus Disagree or other explantion of clinical findi ngs Such as: -- Chronic kidney disease Stage 1 -- Chronic kidney disease Stage 2 -- Chronic kidney disease Stage 3 -- Chronic kidney disease Stage 4 -- Chronic kidney disease Stage 5 -- Chronic kidney disease Stage 5, requiring dialysis -- End Stage Renal Disease -- Other, please specify BUN:26 Creatinine:1.4 Est GFR ( Amer) >60 Est GFR (Non-Af Amer) 52 H and P: Impression: Acute congestive heart failure, poorly controlled hypertension, poor compliance to therapy, history of bipolar disorder. 04/05 Cardiology consult includes: RENAL Hx Chronic Kidney Disease: Yes Stages are defined by the [employer] as follows: CKD Stage I GFR >= 90 ml / min per 1.73 m2 and persistent albuminuria CKD Stage 2 GFR between 60 and 89 with persistent albuminuria CKD Stage 3 GFR between 30 and 59 CKD Stage 4 GFR between 15 and 29 CKD Stage 5 GFR between <15 or End Stage Renal Disease The patient's Clinical Indicators include: -- Query created by: Alise Ceja on 04/07/2018 12:32 PM Electronically signed by: Lopez Andrews MD 04/09/2018 9:19 AM
--- NOTE | 2018-04-09 09:22 | PQF ---
PROVIDER RESPONSE TEXT: BMI--41.7 EXOGENOUS OBESITY REVIEWER QUERY TEXT: Clarification of Clinical Diagnostic Findings Please clarify if you are in agreement with the BMI:41.7 as listed in the EMR and if yes is there an associated dx. to go along with the BMI: i.e Morbid Obesity etc. OR: Unable to determine OR: Other explanation of clinical findings The patient's Clinical Indicators include: -- Query created by: Alise Ceja on 04/07/2018 12:15 PM Electronically signed by: Lopez Andrews MD 04/09/2018 9:19 AM
--- NOTE | 2018-04-09 09:22 | PQF ---
PROVIDER RESPONSE TEXT: COPD EXACERBATION REVIEWER QUERY TEXT: COPD Specificity 2 (two) queries as follows: 1. COPD - is documented in the Medical Record. Please specify whether Stable or in Exacerbation -- an d if with Lower respiratory infection - acute etc. 2. POA? -- OR: Other, please specify 04/04: Angio Chest CT report includes: Small bilateral pleural effusions and bibasilar atelectasis/in filtrates. See full -- Lower respiratory infection - acute ; see full report in the EMR 04/06 CXR: Impression: Persistent mild but improved pulmonary venous congestive changes with minor r esidual bilateral lower lobe alveolar-type infiltrates and small bilateral effusions. 04/06 Attending progress note includes; Assessment: CHF IMPROVING COPD IMPROVING The patient's Clinical Indicators include: -- Query created by: Alise Ceja on 04/07/2018 12:27 PM Electronically signed by: Lopez Andrews MD 04/09/2018 9:19 AM
== END 2018-04-07 14:20 | disposition home or self-care (01) | DRG 127 ==
LOC: H.ER 10:39 → H.ERHOLD 17:53 → H.TEL 21:11
PROVIDERS: ADMIT Internal Medicine Pulmonary Disease; ATTEND Internal Medicine Pulmonary Disease
DX: I11.0 Hypertensive heart disease with heart failure (principal); I50.31 Acute diastolic (congestive) heart failure; F20.9 Schizophrenia, unspecified; J44.9 Chronic obstructive pulmonary disease, unspecified; E66.09 Other obesity due to excess calories; Z68.41 Body mass index [BMI] 40.0-44.9, adult; Z91.14 Patient's other noncompliance with medication regimen; F41.9 Anxiety disorder, unspecified; F31.9 Bipolar disorder, unspecified; M10.9 Gout, unspecified; Z85.47 Personal history of malignant neoplasm of testis; Z91.19 Patient's noncompliance with other medical treatment and regimen; Z71.3 Dietary counseling and surveillance; Z91.013 Allergy to seafood; Z59.0 Homelessness